=== PATIENT | female | born 1985 | race Caucasian/White ===

== ENCOUNTER 2020-10-01 15:17 | Outpatient (RCR) | payer BC, SELFPAY | END 2020-12-30 23:59 | disposition home or self-care (01) | LOC: ANHLAB 15:17 | PROVIDERS: PCP Family Medicine; Visit Provider Obstetrics & Gynecology | DX: Z29.13 Encounter for prophylactic Rho(D) immune globulin (principal); O26.859 Spotting complicating pregnancy, unspecified trimester; Z3A.00 Weeks of gestation of pregnancy not specified | CPT/HCPCS: 36415; 85461; 90384; J2790 ==

== ENCOUNTER 2020-10-01 18:42 | Outpatient (CLI) | payer BC, SELFPAY ==
[2020-10-01] MEDS: RHO(D) IMMUNE GLOBULIN 300 MCG/2 ML SYRINGE IM (19:13)
== END 2020-10-01 18:43 | disposition home or self-care (01) ==
PROVIDERS: PCP Family Medicine; Visit Provider Obstetrics & Gynecology
DX: O36.0990 Maternal care for other rhesus isoimmunization, unspecified trimester, not applicable or unspecified (principal); Z3A.00 Weeks of gestation of pregnancy not specified
CPT/HCPCS: 96372

== ENCOUNTER 2021-02-18 12:04 | Outpatient (RCR) | payer BC, SELFPAY ==
[2021-02-18 13:24] LABS: Hematocrit 37.1 % (37.0-47.0); Hemoglobin 11.9 g/dL (12.0-15.0)
[2021-02-18 13:36] LABS: Glucose 1 Hour PP 50gm Dose 196 mg/dL
[2021-02-18 14:16] LABS: HIV 1/2 Ab P24 Ag Result Negative (Negative)
[2021-02-18] MEDS: RHO(D) IMMUNE GLOBULIN 300 MCG/2 ML SYRINGE IM (18:04)
[2021-02-21 12:00] LABS: Rapid Plasma Reagin Non-Reactive (NonReactive)
== END 2021-05-19 23:59 | disposition home or self-care (01) ==
LOC: ANHLAB 12:04
PROVIDERS: PCP Family Medicine; Visit Provider Obstetrics & Gynecology
DX: Z11.4 Encounter for screening for human immunodeficiency virus [HIV] (principal); Z29.13 Encounter for prophylactic Rho(D) immune globulin; O36.0190 Maternal care for anti-D [Rh] antibodies, unspecified trimester, not applicable or unspecified; Z3A.00 Weeks of gestation of pregnancy not specified
CPT/HCPCS: 36415; 82947; 85014; 85018; 85461; 86592; 86703; 90384; 96372; G0432; J2790

== ENCOUNTER 2021-04-18 20:10 | Observation (INO) | payer BC, SELFPAY ==
[2021-04-18 20:42] VITALS: BP 131/84; PULSE 90
[2021-04-18 20:46] VITALS: BP 131/88; PULSE 98
[2021-04-18 20:51] LABS: Glucose Point of Care 108 mg/dl (65-105)
[2021-04-18 21:01] VITALS: BP 131/84; PULSE 85
[2021-04-18 21:17] VITALS: BP 127/61; PULSE 88
[2021-04-18 21:32] VITALS: BP 104/66; PULSE 83
[2021-04-18 21:42] VITALS: BMI 55.3
--- NOTE | 2021-04-18 21:45 | OBADM ---
This patient, Lindsay Narvaez, admitted to the OB room Labor/Delivery/Recovery 106 for observation. Patient/family oriented to hospital policies and general routines including ID bracelet, bed and alarms, visiting hours, pain management, procedures, bathroom and other care routines, personal items, smoking policy, room service/diet, and visiting hours. Patient/Family are encouraged to report perceived risks to care and to ask questions if they do not understand what they are told or what they should do.
[2021-04-18 22:02] VITALS: BP 122/67; PULSE 90
[2021-04-18] MEDS: ACETAMINOPHEN 500 MG TABLET 1000 MG PO (22:07)
--- NOTE | 2021-04-18 22:14 | PC.NURSE ---
2155- called Magaly Meraz CNMW- informed of pt admission for lower back pain, pelvic pressure, and nausea that started around 10am today. pt stated that she is GDM-diet controlled but doesnt always check her sugar. BS-108 here. pt also CHTN-no meds. FHT reviewed. order recevied to give tylenol 1000mg po for LBP and send UA. will continue to monitor pt and call with lab results.
[2021-04-18 22:27] LABS: Add Urine Microscopic? YES; Appearance Urine Clear (Clear); Bacteria Urine Trace /hpf; Bilirubin Urine Negative (Negative); Blood Urine Negative (Negative); Color Urine Straw (Yellow); Glucose Urine UA Negative (Negative); Ketones Urine Trace mg/dL (Negative); Leukocyte Esterase Ur Negative LEU/UL (Negative); Nitrate Urine Negative (Negative); Protein Urine Negative (Negative); RBC Urine 0-2 /hpf (0-2); Squamous Epithelial Cell Urine Rare /hpf (Few); Urobilinogen Urine Negative mg/dL (<2.0); WBC Urine 0-3 /hpf
[2021-04-18 22:43] LABS: Specific Grav Ur 1.003 (1.001-1.035)
--- NOTE | 2021-04-18 22:51 | PC.NURSE ---
2248- called Holli Meraz [facility]- labs reviewed. pt states that she is feeling 100% better but just tired. order received to D/C home with instructions on when to return. pt has OV with Dr. Duran on 04/22/21.
--- NOTE | 2021-04-26 07:18 | PM.OBTRLD ---
OB - Triage/Final Diagnosis Visit Information Comments/Additional reasons for admission: I have assessed the risk for this patient, Lindsay Narvaez, and determined that she would benefit from observation care. Evaluation Laboratory results: Laboratory Tests 04/18/21 04/18/21 20:47 22:11 POC Capillary Glucose 108 H Urine Color Straw Urine Appearance Clear Urine pH 6.0 Ur Specific [place] 1.003 Urine Protein Negative Urine Glucose (UA) Negative Urine Ketones Trace Ur Blood (Man) Negative Urine Nitrate Negative Urine Bilirubin Negative Urine Urobilinogen Negative Leukocyte Esterase Rfl Negative Urine RBC 0-2 Urine WBC 0-3 Ur Squamous Epith Cells Rare Urine Bacteria Trace Final Diagnosis (1) Back pain affecting : Code(s): O99.891 - Other specified diseases and conditions complicating ; M54.9 - Dorsalgia, unspecified Status: Acute
== END 2021-04-18 23:00 | disposition home or self-care (01) ==
PROVIDERS: Advanced Practice Midwife; Admitting Provider Obstetrics & Gynecology; PCP Family Medicine; Visit Provider Obstetrics & Gynecology
DX: O99.891 Other specified diseases and conditions complicating pregnancy (principal); M54.9 Dorsalgia, unspecified; Z3A.36 36 weeks gestation of pregnancy
CPT/HCPCS: 81001; 82948; A9270; G0378; G0379

== ENCOUNTER 2021-04-29 14:29 | Outpatient (CLI) | payer BC, SELFPAY ==
[2021-04-29 15:05] LABS: Basophils Percent Auto 0.3 % (0.2-1.2); Eosinophils Absolute Auto 0.1 K/mm3 (0-0.3); Hematocrit 39.2 % (37.0-47.0); Hemoglobin 12.5 g/dL (12.0-15.0); Immature Granulocyte Absolute 0.04 K/mm3 (0.00-0.031); Immature Granulocyte Percent A 0.4 % (0-0.5); Lymphocytes Absolute Auto 2.12 K/mm3 (0.9-3.2); Lymphocytes Percent Auto 20.5 % (18.3-44.2); Mean Corpuscular HGB Conc 31.9 g/dl (32-36); Mean Corpuscular Hemoglobin 28.7 pg (26-34); Mean Corpuscular Volume 90.1 fl (80-100); Mean Platelet Volume 12.5 fl (7.4-10.4); Monocytes Absolute Auto 0.9 K/mm3 (0.1-0.6); Monocytes Percent Auto 8.6 % (2.6-8.5); Neutrophils Absolute Auto 7.2 K/mm3 (1.3-6.7); Neutrophils Percent Auto 69.2 % (45.5-73.1); Platelet Count Result 215 k/mm3 (150-375); Red Blood Count 4.35 M/mm3 (4.2-5.4); Red Cell Distribution Width 13.5 % (11.5-14.5); White Blood Count 10.4 K/mm3 (4.5-10.0)
[2021-04-29 15:14] LABS: Alanine Aminotransferase 17 U/L (4-35); Albumin Level 3.5 g/dL (3.5-5.1); Alkaline Phosphatase 155 U/L (38-126); Anion Gap 5 mmol/L (8-16); Aspartate Amino Transferase 26 U/L (14-36); Bilirubin,Total 0.3 mg/dL (0.2-1.3); Blood Urea Nitrogen 4 mg/dL (7-17); Calcium 8.5 mg/dL (8.4-10.2); Carbon Dioxide 25 mmol/L (22-30); Chloride 106 mmol/L (98-107); Estimated Glomerular Filt Rate > 60; Glucose 113 mg/dL (65-110); Potassium 4.1 mmol/L (3.4-5.0); Sodium 136 mmol/L (137-145)
[2021-04-29 15:25] VITALS: BP 127/79; PULSE 82
== END 2021-04-29 15:32 | disposition home or self-care (01) ==
LOC: ANHOBOP 14:38 → ANHOBPP 14:38
PROVIDERS: Advanced Practice Midwife; PCP Family Medicine; Visit Provider Obstetrics & Gynecology
DX: O13.9 Gestational [pregnancy-induced] hypertension without significant proteinuria, unspecified trimester (principal); Z3A.00 Weeks of gestation of pregnancy not specified
CPT/HCPCS: 36415; 80053; 85025; 99199

== ENCOUNTER 2021-05-02 05:45 | Inpatient (IN) | payer BC, SELFPAY ==
[2021-05-02] VITALS (120 sets, daily range): BP systolic 58–150; BP diastolic 44–114; PULSE 25–108; TEMP 36–36.8; O2SAT 83–100; BMI 57.2
--- OUTSIDE RECORDS SUMMARY | 2021-05-02 05:50 | XMS_ITS | Encounter Summary ---
:1985 Author Care Team Providers Name Role Phone Eulalia Rahman Primary Care Provider [phone] Reason for Visit None recorded. Assessment and Plan 1. Maternal obesity complicating , childbirth and the puerperium, antepartum ? US, obstetric, biophysical profile + non-stress test Discussion Note: None recorded.Patient educational handouts: No information available. Plan of Care Reminders Provider Appointments Ob Routine 05/06/2021 Magaly Galindo 2:00PM GEORGE Meraz ? Ob Routine 05/13/2021 Holli Galindo 2:00PM GEORGE Meraz ? 1Hr Glucose on or around Rosalia Michelle 06/13/2021 MD Renee Lab None ? ? recorded. Referral None ? ? recorded. Procedures None ? ? recorded. Surgeries None ? ? recorded. Imaging US, 04/15/2021 [place] [facility], Biophysical Profile + Non-stress Test Medications Name Start Date ? ? Adult Aspirin 81 mg tablet ? aspirin ? freestyle mis lancets ? FreeStyle [place] Lite kit ? USE METER TO TEST SUGARS 4 TIMES A DAY FreeStyle Lancets 28 gauge ? USE TO TEST 4 TIMES A DAY. FASTING IN THE MORNING, AN D 1 HAILEY
--- OUTSIDE RECORDS SUMMARY | 2021-05-02 05:50 | XMS_ITS | Encounter Summary ---
:1985 Author Care Team Providers Name Role Phone Eulaila Rahman Primary Care Provider [phone] Reason for Visit None recorded. Assessment and [...] Surgeries None ? ? recorded. Imaging US, 04/29/2021 [place] [facility], Biophysical Profile + Non-stress Test Medications Name Start Date ? ? Adult Aspirin 81 mg tablet ? aspirin ? freestyle mis lancets ? FreeStyle [place] Lite kit ? USE METER TO TEST SUGARS 4 TIMES A DAY FreeStyle Lancets 28 gauge ? USE TO TEST 4 TIMES A DAY. FASTING IN THE MORNING, AN D 1 HAILEY
--- OUTSIDE RECORDS SUMMARY | 2021-05-02 05:50 | XMS_ITS ---
:1985 Author Care Team Providers Name Role Phone SHANE GALLOWAY Primary Care Provider [phone] Allergies Code Code System Name Reaction Severity Status Onset NKDA ? Medications Name Status Start Date Stop Date ? ? Adult Aspirin 81 mg tablet Active ? Not a vailable aspirin Active ? Not available bupropion HCl 75 mg tablet Completed ? 11/28 take 1 tablet by oral route 3 times every day ciprofloxacin 500 mg tablet Completed ? 02/2020 TAKE 1 TABLET BY MOUTH TWICE A DAY FOR 5 DAYS clomiphene citrate 50 mg tablet Completed 11/21/2018 10/06/2020 take 1 tablet by oral route every day days 5-9 of cycle Diflucan 150 mg tablet Completed 09/20/2016 8 take 1 tablet by oral route once Diflucan 200 mg tablet Completed 08/18/2016 7 take 1 tablet by oral route every day Flagyl 500 mg tablet Completed 07/29/2018 11/28/2018 take 1 tablet by oral route every 12 hours fluoxetine 40 mg capsule Completed ? 014 take 1 capsule by oral route every day in the morning freestyle mis lancets Active ? Not kye ilable FreeStyle [place] Lite kit Active ? Not a vailable USE METER TO TEST SUGARS 4 TIMES A DAY FreeStyle Lancets 28 gauge Active ? Not a vailable USE TO TEST 4 TIMES A DAY. FASTING IN THE MORNING, AND 1 HOUR A FTER MEALS FreeStyle Lite Strips Active ? Not availa ble USE TO TEST 4 TIMES A DAY, FASTING IN THE MORNING AND [address] MEALS hydrochlorothiazide 12.5 mg Completed ? 02/2020 capsule
--- OUTSIDE RECORDS SUMMARY | 2021-05-02 05:50 | XMS_ITS | Encounter Summary ---
:1985 Author Care Team Providers Name Role Phone Eulalia Rahman Primary Care Provider [phone] Reason for Visit OB visit OB [id number] EDC 05/15/2021 LMP 08/08/2020 Assessment and Plan Assessment Note Patient is _34__weeks . Dis cussed plan. 1. Routine care Discussion Note: None recorded.Patient educational handouts: No information available. Plan of Care Reminders Provider Appointments Ob Routine 05/06/2021 Magaly Meraz, 2:00PM CNM ? Ob Routine 05/13/2021 Holli Meraz, 2:00PM CNM ? 1Hr on or around Rosalia There se Glucose 06/13/2021 MD Renee Lab None ? ? recorded. Referral None ? ? recorded. Procedures None ? ? recorded. Surgeries None ? ? recorded. Imaging None ? ? recorded. Medications Name Start Date ? ? Adult Aspirin 81 mg tablet ? aspirin ? freestyle mis lancets ? FreeStyle [place] Lite kit ? USE METER TO TEST SUGARS 4 TIMES A DAY FreeStyle Lancets 28 gauge ? USE TO TEST 4 TIMES A DAY. FASTING IN THE MORNING, AN D 1 HOUR AFTER MEALS FreeStyle Lite Strips ? USE TO TEST 4 TIMES A DAY, FASTING IN THE MORNING AND 1 HOUR AFTER MEALS ?
--- OUTSIDE RECORDS SUMMARY | 2021-05-02 05:50 | XMS_ITS | Encounter Summary ---
:1985 Author Care Team Providers Name Role Phone Eulalia Rahman Primary Care Provider [phone] Reason for Visit OB visit Assessment and Plan 1. Chronic hypertension in obste tric context 2. Gestational diabetes mellitus , class A>1< Discussion Note: None recorded.Patient educational handouts: No [...] aspirin ? freestyle mis lancets ? FreeStyle [place] Lite kit ? USE METER TO TEST SUGARS 4 TIMES A DAY FreeStyle Lancets 28 gauge ? USE TO TEST 4 TIMES A DAY. FASTING IN THE MORNING, AN D 1 HOUR AFTER MEALS FreeStyle Lite Strips ? USE TO TEST 4 TIMES A DAY, FASTING IN THE MORNING AND 1 HOUR AFTER MEALS ? sertraline 50 mg tablet ? TAKE 1 TABLET BY MOUTH EVERY DAY FOR 30 DAYS
--- OUTSIDE RECORDS SUMMARY | 2021-05-02 05:50 | XMS_ITS | Encounter Summary ---
:1985 Author Care Team Providers Name Role Phone Eulalia Rahman Primary Care Provider [phone] Reason for Visit OB visit OB [id number] EDC 05/15/2021 LMP 08/08/2020 Assessment and Plan Assessment Note Patient is _37__weeks . Dis cussed plan. 1. Routine care [...] aspirin ? freestyle mis lancets ? FreeStyle [place] Lite kit ? USE METER TO TEST SUGARS 4 TIMES A DAY FreeStyle Lancets 28 gauge ? USE TO TEST 4 TIMES A DAY. FASTING IN THE MORNING, AN D 1 HOUR AFTER MEALS FreeStyle Lite Strips ? USE TO TEST 4 TIMES A DAY, FASTING IN THE MORNING AND 1 HOUR AFTER MEALS ?
--- OUTSIDE RECORDS SUMMARY | 2021-05-02 05:50 | XMS_ITS | Encounter Summary ---
:1985 Author Care Team Providers Name Role Phone Eulalia Rahman Primary Care Provider [phone] Reason for Visit None recorded. Assessment and Plan 1. Gestational diabetes mellitus , class A>1< ? non-stress test Discussion Note: None recorded.Patient educational [...] recorded. Surgeries None ? ? recorded. Imaging Non-stress 04/22/2021 Radha harvey Test Medications Name Start Date ? ? Adult Aspirin 81 mg tablet ? aspirin ? freestyle mis lancets ? FreeStyle [place] Lite kit ? USE METER TO TEST [...]
--- OUTSIDE RECORDS SUMMARY | 2021-05-02 05:50 | XMS_ITS | Encounter Summary ---
:1985 Author Care Team Providers Name Role Phone Eulalia Rahman Primary Care Provider [phone] Reason for Visit None recorded. Assessment and [...] Surgeries None ? ? recorded. Imaging Non-stress 04/15/2021 Radha harvey Test Medications Name Start Date ? ? Adult Aspirin 81 mg tablet ? aspirin ? freestyle mis lancets ? FreeStyle [place] Lite kit ? USE METER TO TEST [...]
--- OUTSIDE RECORDS SUMMARY | 2021-05-02 05:50 | XMS_ITS | Encounter Summary ---
:1985 Author Care Team Providers Name Role Phone Eulalia Rahman Primary Care Provider [phone] Reason for Visit OB visit Assessment and Plan 1. Chronic hypertension in obste tric context 2. Body mass index 40+ - severel y obese 3. Advanced maternal age Discussion Note: None recorded.Patient educational handouts: No [...] aspirin ? freestyle mis lancets ? FreeStyle [place] Lite kit ? USE METER TO TEST [...]
--- OUTSIDE RECORDS SUMMARY | 2021-05-02 05:50 | XMS_ITS | Encounter Summary ---
:1985 Author Care Team Providers Name Role Phone Eulalia Rahman Primary Care Provider [phone] Reason for Visit None recorded. Assessment and Plan 1. Gestational diabetes mellitus , class A>1< ? US, obstetric, biophysical profile + non-stress test Discussion Note: None recorded.Patient educational handouts: No information available. Plan of Care Reminders Provider Appointments Ob Routine 05/06/2021 Magaly h E 2:00PM [place], CNM ? Ob Routine 05/13/2021 Holli E 2:00PM Kt, CNM ? 1Hr Glucose on or around Rosalia Michelle 06/13/2021 MD Renee Lab None ? ? recorded. Referral None ? ? recorded. Procedures None ? ? recorded. Surgeries None ? ? recorded. Imaging US, 04/22/2021 [place] [facility], Biophysical Profile + Non-stress Test Medications Name Start Date ? ? Adult Aspirin 81 mg tablet ? aspirin ? freestyle mis lancets ? FreeStyle [place] Lite kit ? USE METER TO TEST SUGARS 4 TIMES A DAY FreeStyle Lancets 28 gauge ? USE TO TEST 4 TIMES A DAY. FASTING IN THE MORNING, AN D 1 HOUR AFTER MEALS FreeStyle Lite Strips ?
--- OUTSIDE RECORDS SUMMARY | 2021-05-02 05:50 | XMS_ITS | Encounter Summary ---
:1985 Author Care Team Providers Name Role Phone Eulalia Rahman Primary Care Provider [phone] Reason for Visit None recorded. Assessment and [...] Surgeries None ? ? recorded. Imaging Non-stress 04/29/2021 Radha harvey Test Medications Name Start Date ? ? Adult Aspirin 81 mg tablet ? aspirin ? freestyle mis lancets ? FreeStyle [place] Lite kit ? USE METER TO TEST [...]
--- OUTSIDE RECORDS SUMMARY | 2021-05-02 05:51 | XMS_ITS | Encounter Summary ---
:1985 Author Care Team Providers Name Role Phone Eulalia Rahman Primary Care Provider [phone] Reason for Visit OB visit Assessment and Plan 1. Routine care Discussion Note: None recorded.Patient [...] aspirin ? freestyle mis lancets ? FreeStyle [place] Lite kit ? USE METER TO TEST [...] BY MOUTH EVERY DAY FOR 30 DAYS Notes: taking 1/2 tab every day and a full tab if needed Medications Admin
--- OUTSIDE RECORDS SUMMARY | 2021-05-02 05:51 | XMS_ITS | Encounter Summary ---
:1985 Author Care Team Providers Name Role Phone Eulalia Rahman Primary Care Provider [phone] Reason for Visit None recorded. Assessment and [...] Surgeries None ? ? recorded. Imaging US, 04/01/2021 [place] [facility], Biophysical Profile + Non-stress Test Medications Name Start Date ? ? Adult Aspirin 81 mg tablet ? aspirin ? freestyle mis lancets ? FreeStyle [place] Lite kit ? USE METER TO TEST SUGARS 4 TIMES A DAY FreeStyle Lancets 28 gauge ? USE TO TEST 4 TIMES A DAY. FASTING IN THE MORNING, AN D 1 HO
--- OUTSIDE RECORDS SUMMARY | 2021-05-02 05:51 | XMS_ITS | Encounter Summary ---
:1985 Author Care Team Providers Name Role Phone Eulalia Rahman Primary Care Provider [phone] Reason for Visit OB visit 30w5d Assessment and Plan 1. Routine care 2. Gestational diabetes mellitus complicating Discussion Note: None recorded.Patient educational handouts: No [...] aspirin ? freestyle mis lancets ? FreeStyle [place] Lite kit ? USE METER TO TEST [...]
--- OUTSIDE RECORDS SUMMARY | 2021-05-02 05:51 | XMS_ITS | Encounter Summary ---
:1985 Author Care Team Providers Name Role Phone Eulalia Rahman Primary Care Provider [phone] Reason for Visit None recorded. Assessment and [...] Surgeries None ? ? recorded. Imaging Non-stress 04/01/2021 Radha harvey Test Medications Name Start Date ? ? Adult Aspirin 81 mg tablet ? aspirin ? freestyle mis lancets ? FreeStyle [place] Lite kit ? USE METER TO TEST [...]
--- OUTSIDE RECORDS SUMMARY | 2021-05-02 05:51 | XMS_ITS | Encounter Summary ---
:1985 Author Care Team Providers Name Role Phone Eulalia Rahman Primary Care Provider [phone] Reason for Visit None recorded. Assessment and Plan 1. Maternal obesity complicating , childbirth and the puerperium, antepartum ? US, obstetric, follow-up ? US, obstetric, biophysical profile + non-stress test Discussion Note: None recorded.Patient educational handouts: No information available. Plan of Care Reminders Provider Appointments Ob Routine 05/06/2021 Magaly h E 2:00PM GEORGE Meraz ? Ob Routine 05/13/2021 Holli E 2:00PM GEORGE Meraz ? 1Hr Glucose on or around Rosalia Michelle 06/13/2021 MD Renee Lab None ? ? recorded. Referral None ? ? recorded. Procedures None ? ? recorded. Surgeries None ? ? recorded. Imaging US, 04/08/2021 [place] [facility], Follow-up ? US, 04/08/2021 [place] [facility], Biophysical Profile + Non-stress Test Medications Name Start Date ? ? Adult Aspirin 81 mg tablet ? aspirin ? free
--- OUTSIDE RECORDS SUMMARY | 2021-05-02 05:51 | XMS_ITS | Encounter Summary ---
:1985 Author Care Team Providers Name Role Phone Eulalia Rahman Primary Care Provider [phone] Reason for Visit OB visit Assessment and Plan 1. Advanced maternal age 2. Chronic hypertension in obste tric context 3. Gestational diabetes mellitus , class A>1< Discussion [...] aspirin ? freestyle mis lancets ? FreeStyle [place] Lite kit ? USE METER TO TEST [...]
--- OUTSIDE RECORDS SUMMARY | 2021-05-02 05:51 | XMS_ITS | Encounter Summary ---
:1985 Author Care Team Providers Name Role Phone Eulalia Rahman Primary Care Provider [phone] Reason for Visit None recorded. Assessment and [...] Surgeries None ? ? recorded. Imaging Non-stress 04/08/2021 Radha harvey Test Medications Name Start Date ? ? Adult Aspirin 81 mg tablet ? aspirin ? freestyle mis lancets ? FreeStyle [place] Lite kit ? USE METER TO TEST [...]
--- OUTSIDE RECORDS SUMMARY | 2021-05-02 05:51 | XMS_ITS | Encounter Summary ---
:1985 Author Care Team Providers Name Role Phone Eulalia Rahman Primary Care Provider [phone] Reason for Visit None recorded. Assessment and Plan None recorded.Discussion Note: None recorded.Patient educational handouts: No information [...] aspirin ? freestyle mis lancets ? FreeStyle [place] Lite kit ? USE METER TO TEST [...] and a full tab if needed Medications Administered None recorded. Vitals None recorded. Results
--- OUTSIDE RECORDS SUMMARY | 2021-05-02 05:51 | XMS_ITS | Encounter Summary ---
:1985 Author Care Team Providers Name Role Phone Eulalia Rahman Primary Care Provider [phone] Reason for Visit None recorded. Assessment and [...] Surgeries None ? ? recorded. Imaging US, 03/25/2021 [place] [facility], Biophysical Profile + Non-stress Test Medications Name Start Date ? ? Adult Aspirin 81 mg tablet ? aspirin ? freestyle mis lancets ? FreeStyle [place] Lite kit ? USE METER TO TEST SUGARS 4 TIMES A DAY FreeStyle Lancets 28 gauge ? USE TO TEST 4 TIMES A DAY. FASTING IN THE MORNING, AN D 1 HO
--- OUTSIDE RECORDS SUMMARY | 2021-05-02 05:51 | XMS_ITS | Encounter Summary ---
:1985 Author Care Team Providers Name Role Phone Eulalia Rahman Primary Care Provider [phone] Reason for Visit OB visit 25w4d Assessment and Plan 1. Routine care Discussion [...] aspirin ? freestyle mis lancets ? FreeStyle [place] Lite kit ? USE METER TO TEST [...]
--- OUTSIDE RECORDS SUMMARY | 2021-05-02 05:51 | XMS_ITS | Encounter Summary ---
:1985 Author Care Team Providers Name Role Phone Eulalia Rahman Primary Care Provider [phone] Reason for Visit None recorded. Assessment and Plan 1. Gestational diabetes mellitus , class A>1< Pt here for diet teaching. Bethany t over ideal ranges for FBS and pp BS. Went over carb counting and carb ranges for e ach meal/snack. Gave ideas for foods to eat for meals/snacks. Discussed drink option s and to avoid soda and juice. Told pt she can go online to ADA for meal options or to look up low carb meal recipes online for ideas as well. Pt has been checking suga rs for about a month now. Pt has some elevated pp levels. Most fasting levels are normal. Told pt to continue checking BS QID and adjusting diet to follow low car b diet to try to keep BS within normal range. Pt aware if sugars aren't controlled by diet we would discuss starting insulin. Went over NST schedule with pt and growth u/s once she gets further along. Pt checking BS for her and baby's health. Pts questions were answered and pt verbalized understanding. ALLISON nieto ? US, obstetric, follow-up Discussion Note: None recorded.Patient educational handouts: No information available. Plan of Care Reminders Provider Appointments Ob Routine 05/06/2021 Magaly Meraz, 2:00PM CNM ? Ob Routine 05/13/2021 Holli Meraz, 2:00PM CNM ? 1Hr on or around Rosalia There se Glucose 06/13/2021 MD Renee Lab None ? ? recorded. Referral None ? ? recorded. Procedures
--- OUTSIDE RECORDS SUMMARY | 2021-05-02 05:51 | XMS_ITS | Encounter Summary ---
:1985 Author Care Team Providers Name Role Phone Eulalia Rahman Primary Care Provider [phone] Reason for Visit OB visit Assessment and Plan 1. Advanced maternal age 2. Body mass index 40+ - severel y obese 3. Chronic hypertension in obste tric context 4. Gestational diabetes mellitus , class A>1< Pt [...] questions were answered and pt verbalized understanding. bnALLISON grace Discussion Note: None recorded.Patient educational handouts: No information available. Plan of Care Reminders Provider Appointments Ob Routine 05/06/2021 Magaly Meraz, 2:00PM CNM ? Ob Routine 05/13/2021 Holli Meraz, 2:00PM CNM ? 1Hr on or around Rosalia There se Glucose 06/13/2021 MD Renee Lab None ? ? recorded.
--- OUTSIDE RECORDS SUMMARY | 2021-05-02 05:51 | XMS_ITS | Encounter Summary ---
:1985 Author Care Team Providers Name Role Phone Eulalia Rahman Primary Care Provider [phone] Reason for Visit None recorded. Assessment and Plan 1. Chronic hypertension in obste tric context ? non-stress test Discussion Note: None recorded.Patient [...] Surgeries None ? ? recorded. Imaging Non-stress 03/25/2021 Radha harvey Test Medications Name Start Date ? ? Adult Aspirin 81 mg tablet ? aspirin ? freestyle mis lancets ? FreeStyle [place] Lite kit ? USE METER TO TEST [...]
--- OUTSIDE RECORDS SUMMARY | 2021-05-02 05:51 | XMS_ITS | Encounter Summary ---
:1985 Author Care Team Providers Name Role Phone Eulalia Rahman Primary Care Provider [phone] Reason for Visit None recorded. Assessment and [...]
--- NOTE | 2021-05-02 07:24 | LDADM ---
This patient, Lindsay Narvaez, was admitted to Labor/Delivery/Recovery 103 on 05/02/21 at 05:45. Plans for labor, pain management and were discussed with patient. Patient/family oriented to hospital policies and general routines including ID bracelet, bed and alarms, visiting hours, pain management, procedures, bathroom and other care routines, personal items, smoking policy, room service/diet and guest tray routines, infant security routines, and visiting hours. Patient/Family are encouraged to report perceived risks to care and to ask questions if they do not understand what they are told or what they should do. See OBIX for further documentation.
[2021-05-02 07:37] LABS: Basophils Percent Auto 0.3 % (0.2-1.2); Eosinophils Percent Auto 0.4 % (0-4.4); Hematocrit 39.3 % (37.0-47.0); Hemoglobin 12.8 g/dL (12.0-15.0); Immature Granulocyte Absolute 0.04 K/mm3 (0.00-0.031); Immature Granulocyte Percent A 0.4 % (0-0.5); Lymphocytes Absolute Auto 1.53 K/mm3 (0.9-3.2); Lymphocytes Percent Auto 14.7 % (18.3-44.2); Mean Corpuscular HGB Conc 32.6 g/dl (32-36); Mean Corpuscular Hemoglobin 28.9 pg (26-34); Mean Corpuscular Volume 88.7 fl (80-100); Mean Platelet Volume 12.3 fl (7.4-10.4); Monocytes Absolute Auto 0.6 K/mm3 (0.1-0.6); Monocytes Percent Auto 5.5 % (2.6-8.5); Neutrophils Absolute Auto 8.2 K/mm3 (1.3-6.7); Neutrophils Percent Auto 78.7 % (45.5-73.1); Platelet Count Result 205 k/mm3 (150-375); Red Blood Count 4.43 M/mm3 (4.2-5.4); Red Cell Distribution Width 13.6 % (11.5-14.5); White Blood Count 10.4 K/mm3 (4.5-10.0)
[2021-05-02] MEDS: OXYTOCIN 30 UNITS/NS 500 ML 30 UNITS/500 ML BAG IV CONT (07:45)
[2021-05-02] MEDS: LACTATED RINGERS 1,000 ML 125 ML IV CONT ×3 (07:47→18:24)
[2021-05-02 07:51] LABS: Alanine Aminotransferase 19 U/L (4-35); Albumin Level 3.3 g/dL (3.5-5.1); Alkaline Phosphatase 164 U/L (38-126); Anion Gap 5 mmol/L (8-16); Aspartate Amino Transferase 26 U/L (14-36); Bilirubin,Total 0.4 mg/dL (0.2-1.3); Blood Urea Nitrogen 4 mg/dL (7-17); Calcium 8.6 mg/dL (8.4-10.2); Carbon Dioxide 22 mmol/L (22-30); Chloride 106 mmol/L (98-107); Estimated CRCL calculation 222 ml/min; Estimated Glomerular Filt Rate > 60; Glucose 155 mg/dL (65-110); Potassium 3.6 mmol/L (3.4-5.0); Sodium 133 mmol/L (137-145); Uric Acid 2.9 mg/dL (2.5-7.5)
--- NOTE | 2021-05-02 09:28 | WPDOBADMIT ---
Obstetrics - Admit Note Admission Note: record reviewed. No pertinent additions to the history and/or any subsequent changes in the physical findings that are not consistent with the expected course of the were found. MIL GDM diet controlled and CHTN. Additions to the history and/or subsequent changes in the physical findings follow. None.
[2021-05-02 11:43] LABS: Glucose Point of Care 83 mg/dl (65-105)
[2021-05-02 13:00] LABS: Rapid Plasma Reagin Non-Reactive (NonReactive)
[2021-05-02 15:21] LABS: Glucose Point of Care 82 mg/dl (65-105)
[2021-05-02] MEDS: LACTATED RINGERS 1,000 ML 999 ML IV CONT (16:18)
[2021-05-02] MEDS: ONDANSETRON INJ 4 MG/2 ML VIAL IV PUSH (17:43)
[2021-05-02 18:52] LABS: Glucose Point of Care 70 mg/dl (65-105)
--- NOTE | 2021-05-02 19:55 | WPDANESEPPF ---
Anes - Initial Pre Proc Eval Procedure: labor epidural Date/Time: 05/02/21 19:55 Surgeon: Rosalia Duran MD Pre Op Diagnosis: labor pain Pre Op Diagnosis: IOL Patient Data Age: 36 Gender: F Height: 1.6 m Weight: 146.5 kg Last Vital Signs Temp 36.3 C L 05/02/21 18:50 Pulse 70 05/02/21 19:45 BP 119/71 05/02/21 19:45 Pulse Ox 95 05/02/21 19:53 Allergies Allergy/AdvReac Type Severity Reaction Status Date / Time No Known Allergies Allergy Unknown Unverified 01/22/16 13:37 Home Medications Medication Instructions Recorded Confirmed Type sertraline 50 mg PO DAILY 04/18/21 05/02/21 History PNV cmb#95-ferrous fumarate-FA 1 tablet PO DAILY 04/23/21 05/02/21 History [] aspirin 81 mg PO DAILY 04/23/21 05/02/21 History docusate sodium [Colace] 50 mg PO DAILY 04/23/21 05/02/21 History Laboratory Tests 05/02/21 05/02/21 05/02/21 07:27 07:27 07:28 WBC 10.4 K/mm3 H K/mm3 (4.5-10.0) RBC 4.43 M/mm3 M/mm3 (4.2-5.4) Hgb 12.8 g/dL g/dL (12.0-15.0) Hct 39.3 % % (37.0-47.0) MCV 88.7 fl fl (80-100) MCH 28.9 pg pg (26-34) MCHC 32.6 g/dl g/dl (32-36) RDW 13.6 % % (11.5-14.5) Plt Count 205 k/mm3 k/mm3 (150-375) MPV 12.3 fl H fl (7.4-10.4) Immature Gran % (Auto) 0.4 % % (0-0.5) Neut % (Auto) 78.7 % H % (45.5-73.1) Lymph % (Auto) 14.7 % L % (18.3-44.2) [place] % (Auto) 5.5 % % (2.6-8.5) Eos % (Auto) 0.4 % % (0-4.4) Baso % (Auto) 0.3 % % (0.2-1.2) Lymph # (Auto) 1.53 K/mm3 K/mm3 (0.9-3.2) [place] # (Auto) 0.6 K/mm3 K/mm3 (0.1-0.6) Eos # (Auto) 0.0 K/mm3 K/mm3 (0-0.3) Baso # (Auto) 0.0 K/mm3 K/mm3 (0.0-0.1) Abs Immat Gran (auto) 0.04 K/mm3 H K/mm3 (0.00-0.031) Absolute Neuts (auto) 8.2 K/mm3 H K/mm3 (1.3-6.7) Absolute Nucleated RBC 0.0 K/mm3 K/mm3 (0.0-0.012) Nucleated RBC % 0.0 % % (0.0-0.2) Sodium 133 mmol/L L mmol/L (137-145) Potassium 3.6 mmol/L mmol/L (3.4-5.0) Chloride 106 mmol/L mmol/L (98-107) Carbon Dioxide 22 mmol/L mmol/L (22-30) Anion Gap 5 mmol/L L mmol/L (8-16) BUN 4 mg/dL L mg/dL (7-17) Creatinine 0.40 mg/dL L mg/dL (0.7-1.0) Estim Creat Clear Calc 222 ml/min ml/min Estimated GFR > 60 (59 - ) Glucose 155 mg/dL H mg/dL (65-110) POC Capillary Glucose Uric Acid 2.9 mg/dL mg/dL (2.5-7.5) Calcium 8.6 mg/dL mg/dL (8.4-10.2) Total Bilirubin 0.4 mg/dL mg/dL (0.2-1.3) AST 26 U/L U/L (14-36) ALT 19 U/L U/L (4-35) Alkaline Phosphatase 164 U/L H U/L (38-126) Total Protein 7.0 g/dL g/dL (6.3-8.2) Albumin 3.3 g/dL L g/dL (3.5-5.1) RPR Non-reactive (NonReactive) Blood Type Antibody Screen 05/02/21 05/02/21 05/02/21 07:28 11:30 15:18 WBC RBC Hgb Hct MCV MCH MCHC RDW Plt Count MPV Immature Gran % (Auto) Neut % (Auto) Lymph % (Auto) [place] % (Auto) Eos % (Auto) Baso % (Auto) Lymph # (Auto) [place] # (Auto) Eos # (Auto) Baso # (Auto) Abs Immat Gran (auto) Absolute Neuts (auto) Absolute Nucleated RBC Nucleated RBC % Sodium Potassium Chloride Carbon Dioxide Anion Gap BUN Creatinine Estim Creat Clear Calc Estimated GFR Glucose POC Capillary Glucose 83 mg/dl
[2021-05-02 22:14] LABS: Glucose Point of Care 104 mg/dl (65-105)
[2021-05-03] VITALS (147 sets, daily range): BP systolic 79–208; BP diastolic 32–130; PULSE 65–154; RESP 16; TEMP 36.6–37.4; O2SAT 75–100
[2021-05-03] MEDS: LACTATED RINGERS 1,000 ML 125 ML IV CONT (00:42)
[2021-05-03 02:31] LABS: Glucose Point of Care 96 mg/dl (65-105)
[2021-05-03] MEDS: AMPICILLIN 2 GM/NS 100 ML 2 GM/100 ML BAG IVPB (03:14)
[2021-05-03 06:54] LABS: Glucose Point of Care 78 mg/dl (65-105)
[2021-05-03] MEDS: AMPICILLIN 1 GM/NS 50 ML 1 GM/50 ML BAG IVPB ×2 (06:59→11:25)
[2021-05-03 10:42] LABS: Glucose Point of Care 125 mg/dl (65-105)
[2021-05-03] MEDS: OXYTOCIN 30 UNITS/NS 500 ML 30 UNITS/500 ML BAG IV CONT (11:26)
[2021-05-03 11:32] LABS: Glucose Point of Care 111 mg/dl (65-105)
--- NOTE | 2021-05-03 15:21 | PM.OBPRVD ---
OB - Delivery Note Procedure Delivery date: 05/03/21 Procedure: vaginal delivery Events: Gestational Diabetes Induction method: AROM and Per Pitocin Protocol Delivery monitor: External FHT, External Uterine and Internal Uterine Route of delivery: Specimen: Yes Quantitative Blood Loss (ml): 150 Anesthesia type: Epidural Disposition: Floor [place] Baby Date of : 05/03/21 Time of : 15:07 Weeks of gestation at delivery: 38 gender: Female Weight (pounds): 7 Weight (ounces): 11 presentation: vertex position: Left Occiput Anterior Placenta delivery description: Spontaneous Cord Vessel Description: 3 Vessels score one minute: 8 score five minutes: 8 Narrative: mother and baby in stabel condition
[2021-05-03] MEDS: OXYTOCIN 30 UNITS/NS 500 ML 30 UNITS/500 ML BAG 125 UNITS IV CONT (15:43)
[2021-05-03] MEDS: WITCH HAZEL 40 PADS 1 PAD TOPICAL (17:13)
[2021-05-03] MEDS: IBUPROFEN 600 MG TABLET PO (19:12)
--- NOTE | 2021-05-03 19:19 | OBPPTRN ---
1744 Patient transferred to post room #284 via W/C. Support person present. Oriented to unit, room, information board, rooming in, admission packet and security measures. Patient verbalizes understanding.
[2021-05-04] MEDS: ACETAMINOPHEN 325 MG TABLET 650 MG PO ×2 (00:35→07:09)
[2021-05-04 04:45] VITALS: BP 132/71; PULSE 107; RESP 16; TEMP 36.9
[2021-05-04] MEDS: IBUPROFEN 600 MG TABLET PO ×2 (04:45→11:35)
[2021-05-04 05:25] LABS: Hematocrit 36.4 % (37.0-47.0); Hemoglobin 11.8 g/dL (12.0-15.0)
[2021-05-04] MEDS: DOCUSATE SODIUM 100 MG CAPSULE PO (07:09)
[2021-05-04] MEDS: MULTIVIT/MIN/PREN/FOL AC/IRON TABLET 1 TAB PO (07:09)
--- NOTE | 2021-05-04 07:29 | PM.OBPNVD ---
OB - PN: Subj Subjective Date/time seen: 05/04/21 07:29 Patient comments: no complaints baby status: doing well OB - PN: Obj Data Labs CBC & Chem 7: 05/04/21 04:40 05/02/21 07:27 Labs: Laboratory Results - last 24 hr 05/03/21 05/03/21 05/04/21 10:38 11:30 04:40 Hgb 11.8 L Hct 36.4 L POC Capillary Glucose 125 H 111 H OB - PN A/P Plan day: 1 Plan: routine care Time Spent With Patient Time: Total time spent is greater than 50% in coordination of care (as documented) at patient's floor/unit and/or counseling patient: Review of Systems Review of Systems: All systems reviewed & are unremarkable except as noted in HPI and below Exam Const: General: cooperative, healthy appearing and comfortable
[2021-05-04 07:35] VITALS: BP 136/90; PULSE 85; RESP 18; TEMP 36.1; O2SAT 98
--- NOTE | 2021-05-04 08:47 | PC.NURSE ---
On 05/04/21, the student, [ ], provided care and completed [employer] documentation on this patient. I have reviewed the student's documentation and agree with the findings.
--- NOTE | 2021-05-04 08:48 | PC.NURSE ---
On 05/04/21, the student, Brett Yates, provided care and completed [facility] documentation on this patient. I have reviewed the student's documentation and agree with the findings.
[2021-05-04] MEDS: SERTRALINE HCL 50 MG TABLET PO (11:37)
[2021-05-04 12:00] VITALS: BP 110/71; PULSE 83; RESP 20; TEMP 36.4; O2SAT 97
[2021-05-04] MEDS: RHO(D) IMMUNE GLOBULIN 300 MCG/2 ML SYRINGE IM (13:10)
--- NOTE | 2021-05-04 16:21 | PC.NURSE ---
[id number] Introductions were made and consulted with patient to assess needs related to . Mother led conversation with her experience with feeding baby so far. Reviewed good handwashing when working with , breast, nipples and how to protect the nipples with a deep latch. Encouraged understanding the benefits of skin to skin, responding to feeding cues, frequencies of feeding 8-12 times in 24 hours (approximately 2-3 hours), duration of feedings, milk production, intake/output feeding sheet and signs of adequate intake. Discussed stimulating with skin to skin, hand expressing colostrum, touch and talking to infant to encourage eating at the breast. Reviewed positioning and alignment, supporting breast, off-centered (asymmetrical latch) and leading with the chin with big open wide gape. Resources reviewed using the mom and baby guide. Mother voiced understanding responding to feeding cues, may need to stimulating approximately 2-3 hours from the start of the last feeding, calling for assistance if the infant does not latch or there discomfort . Reported to primary RN. [id number] Consulted with patient to assess needs related to . Mother works well with her after encouragement. Reviewed good handwashing when working with infant, breast, nipples and how to protect the nipples with a deep latch. Encouraged understanding the benefits of skin to skin, responding to feeding cues, frequencies of feeding 8-12 times in 24 hours (approximately 2-3 hours), duration of feedings, milk production, intake/output feeding sheet and signs of adequate intake. Discussed stimulating infant with skin to skin, hand expressing colostrum, touch and talking to infant to encourage eating at the breast. Reviewed positioning and alignment, supporting breast, off-centered (asymmetrical latch) and leading with the chin with big open wide gape. attempted to the left breast in football position with no latch. Assisted mom with infant after feeding cues visualized to the right breast. Stimulated infant with supplementation after 10-15 attempt with no latch. After 10cc of paced fed formula infant latched optimally to the left breast in football position. Education given to mother of how to visualize suck/swallow ratios and drinking at the breast. was able to maintain latch without discomfort to mother. Nipple care, comfort and healing with warm, wet washcloth to rinse breast and leave to air-dry, colostrum may be left on nipples to dry but have clean hands when touching the nipple/breast. has had inadequate feedings in the past 24 hours and meets the outcomes for weight, output, jaundice and insist on going home after 24 hours. RN suggests staying to practice with feeding her infant. Mother states she feels confident to continue effectively /pumping/supplementing her at home. Reviewed production of human milk, transition of milk, signs of adequate intake and engorgement prevention/relief and when to call the care provider using the mom and baby guide. Reviewed medications mother is taking with information provided by [facility], community resources and outpatient services as listed in the mom and baby guide/[facility] website. Reinforced watching for feeding cues with responsive feeding and how to stimulate to initiate feeding three hours from the start of the last feeding. Mother voiced understanding of information shared. Reported to primary RN. Resources used to facilitate learning were used from the visual handout/ tool/mom and baby guide. Mother voiced understanding responding to feeding cues, may need to stimulating approximately 2-3 hours from the start of the last feeding, calling for assistance if the infant does not latch or there discomfort . Reported to primary RN. 1630 - Primary RN reported that mother is discharged to home on a feeding plan for baby.
--- NOTE | 2021-05-04 16:47 | WPDANLDPN2 ---
Anes-Prog Note L&D Date/Time: 05/04/21 16:47 Comfortable throughout: labor and delivery Neuraxial method: epidural Epidural/Spinal procedure site: clean & non-tender Neuro status: Neuro function grossly intact. Cardiovascular status: normal Respiratory status: normal Airway patency: baseline Mental status: baseline Post-Op hydration status: normal Vital Signs: Last Vital Signs Temp 36.4 C L 05/04/21 12:00 Pulse 83 05/04/21 12:00 Resp 20 05/04/21 12:00 BP 110/71 05/04/21 12:00 Pulse Ox 97 05/04/21 12:00 Pain score (VAS): 0 Post-procedural complaints: none Patient feedback: Patient satisfied with anesthetic care.
--- NOTE | 2021-05-04 18:37 | PC.NURSE ---
1600 Patient viewed the discharge video Mother & Baby Care, The First Two Weeks . Patient was given the opportunity and encouraged to ask questions. Patient verbalized understanding of information shared and has been given the mother/baby guide for home reference.
[2021-05-05 08:20] VITALS: BP 133/72; PULSE 75; RESP 20; TEMP 36.9; O2SAT 100
--- NOTE | 2021-05-06 07:29 | PM.OBDSVD ---
DS: Admitting Diagnosis Discharge Date 05/04/21 Admitting Diagnosis IOL, GDM, CHTN OB - DS: Summary OB Procedures : None OB Procedures Intrapartum: Spontaneous Vag Delivery OB Procedures: : None Time Spent with Patient Time attestation: Total time spent providing and/or coordinating discharge services: DS: Data Data Completed and Pending Pending studies at discharge: Pending at discharge 05/03/21 15:11 Surgical [PTH] Routine Discharge Plan Discharge Attending physician on discharge: Nicholas Francis Consulting providers: Holli Meraz ; Isacc Christie Discharging Clinician: Holli Meraz Patient Disposition: Home, Self-Care Activity: pelvic rest Diet: regular Discharge Instructions: Education: Mom and Baby Guide Given to: Mother Follow-Up: Call your delivering provider's office for an appointment to be seen in: 1 Week Mom and baby should come to the [facility] for the follow-up appointment. Appointment Date/Time: April at 8:00 am Call [phone] if you are unable to keep your appointment time. BREAST CARE: * Wear a snug supportive bra. * For engorgement discomfort: Breast Feeding: * Apply warm moist washcloths * Express milk as needed to relieve engorgement * Wear loose clothing Bottle Feeding: * May apply ice packs * For sore nipples: * Identify correct latch-on * Apply warm moist washcloths before and after nursing * Air dry nipples after nursing * May apply Lansinoh cream to nipples EPISIOTOMY/PERINEAL CARE: * Until bleeding stops, use your deb bottle after urinating * Change your pad frequently throughout the day * You may take sitz baths several times a day (fill your bathtub with warm water and soak for 20 minutes.) Do NOT bathe in the water * No tub baths until seen by your physician - You may shower ACTIVITY: * Rest as much as possible. * Do not exercise or lift anything heavier than your baby (such as laundry or other children.) * Avoid stairs or driving as much as possible. * Do not put anything into the vagina. No douching, tampons, or sexual activity until seen by physician. NOTIFY PHYSICIAN IF YOU HAVE ANY QUESTIONS OR IF ANY OF THE FOLLOWING SYMPTOMS OCCUR: * If your episiotomy or incision becomes red, swollen, or more painful than what you have experienced in the hospital. * If your vaginal bleeding becomes foul smelling. * If your vaginal bleeding becomes more heavy than a period or if your bleeding changes from pink to bright red. However, you may pass an occasional walnut-sized clot once or twice for the first week . * If you experience a sharp, shooting pain in you calves. * If you discover a hard, reddened area on your breast or if you experience flu-like symptoms. DIET: * Eat regular, well-balanced meals. * Drink plenty of fluids daily. If , drink to thirst. Patient Instructions: Antibiotic Form Follow-up/Referrals: Holli Meraz CNM [Certified Nurse Staff Research Associate] - 4 Weeks Discharge Medications: Continued docusate sodium 50 mg Capsule 50 mg PO DAILY RF: 0 PNV cmb#95-ferrous fumarate-FA [] 28 mg iron- 800 mcg Tablet 1 tablet PO DAILY RF: 0 sertraline 50 mg tablet 50 mg PO DAILY RF: 0 Discontinued aspirin 81 mg Capsule 81 mg PO DAILY RF: 0 Date of admission: 05/02/21 05:45 Primary Care Provider: Elbert,Eulalia Beltran Admitting Provider: Rosalia Duran Attending physician on admission: Rosalia Duran Condition: Stable
== END 2021-05-04 18:30 | disposition home or self-care (01) | DRG 806 ==
LOC: ANHLDR 05:48 → ANHOB2 05-03 18:16
PROVIDERS: Advanced Practice Midwife; Admitting Provider Obstetrics & Gynecology; PCP Family Medicine; Visit Provider Obstetrics & Gynecology
DX: O24.420 Gestational diabetes mellitus in childbirth, diet controlled (principal); O10.92 Unspecified pre-existing hypertension complicating childbirth; Z37.0 Single live birth; O42.92 Full-term premature rupture of membranes, unspecified as to length of time between rupture and onset of labor; O76 Abnormality in fetal heart rate and rhythm complicating labor and delivery; Z3A.38 38 weeks gestation of pregnancy
CPT/HCPCS: 36415; 80053; 82948; 84550; 85014; 85018; 85025; 85461; 86592; 86850; 86900; 86901; 88307; 90384; A9270; J0290; J2405; J2590; J2790; J2795; J7120

== ENCOUNTER 2022-12-07 01:39 | Day surgery (SDC) | payer BC, SELFPAY ==
[2022-12-04 15:09] VITALS: BMI 52.2
--- NOTE | 2022-12-04 15:13 | PC.NURSE ---
Report to the Outpatient Waiting Room, entrance under the green pavilion located off [facility], at time 1000 on date 12/07/22. Planned Procedure Time: 1200. Time changes happen often and if your time is changed the preop area will call you the afternoon before. - You and your visitor will be asked to self-screen and do not enter if you have any COVID symptoms. - A mask is optional within the hospital at this time. Patients may have clear liquids (water, carbonated beverages, clear teas, apple juice) until 3 hours prior to surgery with a maximum of 20 ounces. - No food from midnight until time of surgery Take the following medications with a SIP of water the morning of surgery: SERTRALINE DO NOT STOP ANY OF YOUR OTHER PRESCRIPTION MEDICATIONS PRIOR TO SURGERY ?EXCEPT THE FOLLOWING Medications to discontinue per physician: VITAMINS/SUPPLEMENTS Date to take last dose: NO MORE UNTIL AFTER SURGERY Please no make-up, nail belarusian, hairspray, perfume, deodorant, or body powder the day of surgery. No jewelry (including any body piercings) or valuables the day of surgery, leave them at home. Please take a shower or bath the night before, or the morning of, surgery with an antibacterial soap. Wear comfortable, loose fitting clothing. - Jewelry must be removed prior to entering the operating room. Rings and piercings that are not removed may be cut off. - The hospital will not accept responsibility for valuables. - Please leave all valuables, including medications, at home the day of surgery. If you are going home after surgery, a licensed tram driver must drive you home. - NO public transportation without another adult if you receive anesthesia. - We recommend that an adult stay with you for 24 hours following discharge. - We also recommend that you do not drive, make important decision, drink alcoholic beverages, or take any drugs that were not prescribed by your health care provider for at least 24 hours after your discharge time. Follow any additional instructions given to you from your surgeon. If you or anyone in your household have experienced Covid symptoms in the past week, please notify your surgeon or the nurse liaison at the phone number below for possible testing. Telephone instructions given to PT - JANA VICENTE and asked if any additional questions and then verbalized understanding. Patient advised to call surgeon office or pre surgery nurse liaison [phone] if any additional questions.
[2022-12-07 10:05] VITALS: BP 130/85; PULSE 78; RESP 16; TEMP 36.6; O2SAT 100; BMI 52.2
[2022-12-07] MEDS: LACTATED RINGERS 1,000 ML 30 ML IV CONT (11:15)
--- NOTE | 2022-12-07 11:43 | P.PNAN_ITS ---
Anes - Initial Pre Proc Eval Procedure: Operation Date: 12/07/22 12:00 Proposed Procedures p Suction Dilation and Curettage - Nicholas Francis MD Date/Time: 12/07/22 11:43 Surgeon: Nicholas Francis MD Pre Op Diagnosis: Missed AB Patient Data Age: 37 Gender: F Height: 1.63 m Weight: 137.9 kg Allergies Allergy/AdvReac Type Severity Reaction Status Date / Time Sulfa (Sulfonamide Allergy Rash Verified 12/07/22 11:23 Antibiotics) Home Medications Medication Instructions Recorded Confirmed Type sertraline 50 mg tablet 50 mg PO DAILY 04/18/21 12/07/22 History vit no.95-ferrous 1 tablet PO DAILY 04/23/21 12/07/22 History fumarate 28 mg-folic acid 800 mcg tablet () cetirizine 10 mg tablet (Zyrtec) 10 mg PO DAILY 12/04/22 12/04/22 History coQ10 (ubiquinol) 200 mg capsule 200 mg PO DAILY 12/04/22 12/07/22 History Patient hx anesthesia problems: none Family hx anesthesia problems: none Results Review: All pre-operative results and documents have been reviewed as part of the pre- operative evaluation. [facility] Family History Family History (Updated 04/23/21 @ 12:18 by Daphney Fulton RN) Other Anxiety Congestive heart failure Depression Diabetes mellitus Hypertension Social History Social History Smoking packs per day: 1 Smoking cigarettes per day: 20.0 Years smoked: 5 Smoking pack-years: 5.00 Smoking status: Former smoker Tobacco type: cigarettes Smoking end date: 02/05/07 Alcohol intake: never Substance use: never Substance use type: does not use Living arrangements: with family Spiritual care concerns: No Anes - Eval Final PreProcedure Day of Procedure 12/07/22 11:43 Patient weight: super morbidly obese Heart: regular rate and rhythm Lungs: clear to auscultation Airway: Mallampati scale class III Neurological: alert and oriented Last oral intake: >/= 8 hours ASA classification: III Emergent: no Anesthetic plan: proceed Anesthesia type and monitoring: general GIVS (LMA if needed) and standard monitoring Results Review: All pre-operative results and documents have been reviewed as part of the pre- operative evaluation. Informed Consent: The patient's anesthetic plan and its attendant risks and benefits were discussed with the patient/family/POA. Questions were solicited and answers provided to the satisfaction of the patient/family/POA.
--- NOTE | 2022-12-07 12:29 | SUR.PREOP ---
1200-Pt aware surgeon delayed by previous surgeon-~1/2 hour. 1228-Dr. Francis aware pt is AB negative-will receive tx in OP phase 2.
--- NOTE | 2022-12-07 12:34 | WPDHPUPDATE1 ---
History and Physical Update Update Date/Time: 12/07/22 12:34 History and Physical has been reviewed, including an updated exam of the patient. There are NO changes in the patient's condition. Risks, benefits, and alternatives have been discussed and questions answered. Patient agrees to proceed with procedure.
--- NOTE | 2022-12-07 13:25 | P.OP_ITS ---
Procedure Note - Detailed Date of Procedure 12/07/22 Pre-op Diagnosis Missed AB Post-op Diagnosis Same Procedure Performed Suction D&C Surgeon Nicholas Francis MD Anesthesia MAC Indications missed Findings normal-appearing vulva vagina and cervix to. Moderate amount of products conception within the uterus. 8 cm uterus Description of Procedure the patient was taken the operating room. She was prepped and draped in dorsal lithotomy position after induction of mac anesthesia. A speculum was placed in the vagina. Cervix grasped with tenaculum. The cervix was dilated to about 1 cm Using Caldera dilators. A 8. Danish curved curette was used to perform suction D&C. The curette was introduced and vacuum was applied. The curette was removed over all surfaces of the intrauterine cavity multiple times. This was done until all the surfaces were clear and had the familiar grainy texture they can be felt through the instrument. A sharp curette was then used to curettage all the surfaces. The suction cup was then reapplied 1 more time to remove any debris. The instruments were removed. The speculum and tenaculum were removed. The patient tolerated the procedure well. She was taken recovery room stable condition. Estimated Blood Loss 50 Drains No Packing No Pathology Yes Complications No immediate complications Condition Stable Disposition PACU
[2022-12-07 13:30] VITALS: BP 112/69; PULSE 73; RESP 16; O2SAT 98
[2022-12-07] MEDS: RHO(D) IMMUNE GLOBULIN 300 MCG/2 ML SYRINGE IM (13:52)
[2022-12-07 14:00] VITALS: BP 119/70; PULSE 65; RESP 16
== END 2022-12-07 14:25 | disposition home or self-care (01) ==
PROVIDERS: Visit Provider Obstetrics & Gynecology
PROC: (CPT 59820; principal; 2022-12-07 12:00)
DX: O02.1 Missed abortion (principal); Z87.891 Personal history of nicotine dependence; Z3A.01 Less than 8 weeks gestation of pregnancy
CPT/HCPCS: 59820; 36415; 85461; 86850; 86900; 86901; 88305; 90384; J1100; J2250; J2405; J2704; J2790; J3010; J7120

== ENCOUNTER 2022-12-20 09:58 | Outpatient (CLI) | payer BC, SELFPAY ==
[2022-12-20 20:54] LABS: Beta HCG Quantitative 50.22 mIU/ML
== END 2022-12-20 09:59 | disposition home or self-care (01) ==
LOC: ANHGOSHLAB 10:03
PROVIDERS: Visit Provider Obstetrics & Gynecology
DX: O02.1 Missed abortion (principal)
CPT/HCPCS: 36415; 84702

== ENCOUNTER 2023-01-03 11:24 | Outpatient (CLI) | payer BC, SELFPAY ==
[2023-01-03 14:50] LABS: Beta HCG Quantitative 4.43 mIU/ML
== END 2023-01-03 11:25 | disposition home or self-care (01) ==
LOC: ANHGOSHLAB 11:31
DX: O03.9 Complete or unspecified spontaneous abortion without complication (principal)
CPT/HCPCS: 36415; 84702

== ENCOUNTER 2023-02-24 07:13 | Outpatient (CLI) | payer OTHER, BC, SELFPAY ==
[2023-02-24 07:36] LABS: Hematocrit 43.2 % (37.0-47.0); Hemoglobin 13.3 g/dL (12.0-15.0); Mean Corpuscular HGB Conc 30.8 g/dl (32-36); Mean Corpuscular Hemoglobin 27.4 pg (26-34); Mean Corpuscular Volume 88.9 fl (80-100); Mean Platelet Volume 11.4 fl (7.4-10.4); Platelet Count Result 278 k/mm3 (150-375); Red Blood Count 4.86 M/mm3 (4.2-5.4); Red Cell Distribution Width 13.4 % (11.5-14.5); White Blood Count 7.6 K/mm3 (4.5-10.0)
[2023-02-24 07:55] LABS: Alanine Aminotransferase 30 U/L (6-35); Alkaline Phosphatase 84 U/L (38-126); Anion Gap 7 mmol/L (8-16); Aspartate Amino Transferase 28 U/L (14-36); Bilirubin,Total 0.6 mg/dL (0.2-1.3); Blood Urea Nitrogen 11 mg/dL (7-17); Calcium 8.6 mg/dL (8.4-10.2); Carbon Dioxide 29 mmol/L (22-30); Chloride 106 mmol/L (98-107); Cholesterol 150 mg/dL (0-200); Estimated Glomerular Filt Rate > 60; Glucose 97 mg/dL (65-110); HDL Direct 41 mg/dL; Potassium 4.2 mmol/L (3.4-5.0); Sodium 142 mmol/L (137-145); Triglycerides 75 mg/dL (<150)
[2023-02-24 07:56] LABS: Hemoglobin A1C 5.9 % (<5.7)
[2023-02-24 08:07] LABS: LDL Cholesterol Direct 87 mg/dL
[2023-02-27 22:03] LABS: Vitamin D 1,25 (OH)2 Total 45 pg/mL (18-72); Vitamin D2 1,25 (OH)2 <8 pg/mL; Vitamin D3 1,25 (OH)2 45 pg/mL
== END 2023-02-24 07:14 | disposition home or self-care (01) ==
LOC: ANHLAB 07:16
PROVIDERS: PCP Family Medicine; Visit Provider Family Medicine
DX: E55.9 Vitamin D deficiency, unspecified (principal); E66.9 Obesity, unspecified; F41.9 Anxiety disorder, unspecified; K76.0 Fatty (change of) liver, not elsewhere classified; R73.09 Other abnormal glucose; Z79.899 Other long term (current) drug therapy
CPT/HCPCS: 36415; 80053; 80061; 82652; 83036; 84443; 85027

== ENCOUNTER 2023-09-25 15:19 | Outpatient (CLI) | payer OTHER, BC, SELFPAY ==
[2023-09-25 19:06] LABS: Beta HCG Quantitative 28.78 mIU/ML
[2023-09-27 07:18] LABS: Progesterone 18.9 ng/mL
== END 2023-09-25 15:20 | disposition home or self-care (01) ==
LOC: ANHGOSHLAB 15:23
PROVIDERS: PCP Family Medicine
DX: N91.2 Amenorrhea, unspecified (principal)
CPT/HCPCS: 36415; 84144; 84702

== ENCOUNTER 2023-09-27 08:14 | Outpatient (CLI) | payer OTHER, BC, SELFPAY ==
[2023-09-28 10:54] LABS: Progesterone 16.5 ng/mL
== END 2023-09-27 08:15 | disposition home or self-care (01) ==
LOC: ANHGOSHLAB 08:17
PROVIDERS: PCP Family Medicine
DX: N91.2 Amenorrhea, unspecified (principal)
CPT/HCPCS: 36415; 84144; 84702

== ENCOUNTER 2023-10-16 13:05 | Outpatient (RCR) | payer OTHER, BC, SELFPAY ==
[2023-10-16] MEDS: RHO(D) IMMUNE GLOBULIN 300 MCG/2 ML SYRINGE IM (15:33)
[2023-10-16 15:46] LABS: Beta HCG Quantitative 60.86 mIU/ML
== END 2024-01-14 23:59 | disposition home or self-care (01) ==
LOC: ANHLAB 13:05
PROVIDERS: PCP Family Medicine; Visit Provider Obstetrics & Gynecology
DX: Z29.13 Encounter for prophylactic Rho(D) immune globulin (principal); O36.0130 Maternal care for anti-D [Rh] antibodies, third trimester, not applicable or unspecified; Z3A.00 Weeks of gestation of pregnancy not specified
CPT/HCPCS: 36415; 84702; 85461; 86850; 86900; 86901; 90384; 96372; J2790

== ENCOUNTER 2023-10-23 08:41 | Outpatient (CLI) | payer OTHER, BC, SELFPAY ==
[2023-10-23 14:42] LABS: Beta HCG Quantitative < 2.39 mIU/ML
== END 2023-10-23 08:42 | disposition home or self-care (01) ==
LOC: ANHGOSHLAB 08:43
PROVIDERS: PCP Family Medicine; Visit Provider Obstetrics & Gynecology
DX: O03.9 Complete or unspecified spontaneous abortion without complication (principal)
CPT/HCPCS: 36415; 84702

== ENCOUNTER 2024-05-19 14:47 | Outpatient (CLI) | payer OTHER, BC, SELFPAY ==
--- NOTE | ~2024-05-19 | MM_ITS ---
EXAMINATION: MM screening candis BI w william HISTORY: Screening TECHNIQUE: Craniocaudal and mediolateral oblique 3-D tomosynthesis images were obtained and synthetic 2-D images were generated. CAD analysis was submitted and interpreted. COMPARISON: No prior mammogram is available for comparison at this institution. BREAST PARENCHYMAL COMPOSITION: Not Dense: The breasts are almost entirely fatty. FINDINGS: There is no evidence of suspicious mass, calcification, or architectural distortion to sugg est malignancy in either breast. There has been no suspicious interval change. IMPRESSION: 1. No mammographic evidence of malignancy. 2. Recommend routine screening mammography in one year. BI-RADS Category 1: Negative Reviewed, dictated and finalized at location B.
--- OUTSIDE RECORDS SUMMARY | 2024-05-19 16:35 | XMS_ITS | Data Portability ---
Author Organization [facility] [place] Address [address] [place] [address] [place] [address] Care Team Providers Care Character Actress Name Role Phone MATTHEW QUINONES Primary Care Provider Assessment No assessment recorded. Plan of Treatment Reminders Order Date Submit Date Provider Last Modified By Organization Details Last Modified Time Details Appointments None recorded. Lab test, [email or web address] [place], [address], [place], [address], 3 16:49:58 Referral None recorded. Procedures None recorded. Surgeries None recorded. Imaging US, obstetric, transvagina l 2023 024 [facility] [place], [address], [place], [address], 4 23:10:42 US, obstetric, transvagina l 2022 023 [facility] [place], [address], [place], [address], 3 20:04:11 Medication Orders None recorded. Patient TargetsNo targets recorded. Patient InstructionsNo instructions recorded. Reason for Referral None Reported. Results Created Date Observation Date Name Description Value Unit Range Abnormal Flag Note LastModifiedBy Organization Detail LastModifiedTime 12/02/1912/01/2022 BHCG, QUANT ITATI VE B-HCG 99321. 0 mIU/m L This assay was perfo rmed using [employer] ratio n reage nts and test kits. Value s obtai phuong with other assay metho ds or kits canno t be used inter jose eably . Refer ence Range s: Non-p regna nt, preme nopau meryl women : 0.0-5 .3 mIU/m L Postm enopa usal women : 0.0-7 .0 mIU/m L Sugar l Pregn cydney: Gesta andrew l Age bHCG Conc. - mIU/m L 3 Weeks 5.8 - 71.7 4 Weeks 9.5 - 750 5 Weeks 217-7 138 6 Weeks 158 - 31,79 5 7 Weeks 3,697 - 162,5 63 8 Weeks 32,06 5 - 149,5 71 9 Weeks 63,80 3 - 151,4 10 10 Weeks 46,50 9 - 186,9 77 12 Weeks 27,83 2 - 210,6 12 14 Weeks 13,95 0 - 62,53 0 15 Weeks 12,03 9 - 70,97 1 16 Weeks 9,040 - 56,45 1 17 Weeks 8,175 - 55,86 8 18 Weeks 8,099 - 58,17 6 Not Available [facility] (Lab) [address], [place], [address], 12/02/2022 05:59:33 12/02/19 23 12/01/2022 TYPE/ RH/SC REEN ABO/Rh type AB NEG Not Available [facility] (Lab) [address], [place], [address], 12/02/2022 05:59:33 12/02/19 23 12/01/2022 TYPE/ RH/SC REEN antibody screen NEG Not Available [facility] (Lab) [address], [place], [address], 12/02/2022 05:59:33 12/02/19 23 12/01/2022 TYPE/ RH/SC REEN exp date 2022 23:59 Not Available [facility] (Lab) [address], [place], [address], 12/02/2022 05:59:33 12/14/19 23 12/13/2022 pregn cydney test, urine HCG positi ve Not Available [place] [address], [place], [address], 12/13/2022 16:49:42 10/17/19 24 10/17/2023 DHEA SULFA TE DHEA-sulfate 83 ug/dL Femal e Range s Age(y ) Range (ug/d L) 10-15 34-28 0 15-20 65-36 8 20-25 148-4 07 25-35 99-34 0 35-45 61-33 7 45-55 35-25 6 55-65 19-20 5 65-75 9-246 > 75 12-15 4 Not Available [facility] (Lab) [address] [facility], [place], [address], 10/23/2023 19:22:40 10/17/19 24 10/17/2023 ESTRA DIOL estradiol 74.1 pg/mL This assay was perfo rmed using [employer] n reage nts and test kits. Value s obtai phuong with other assay metho ds or kits canno t be used inter jose eably . Femal e Estra diol Range s: Folli cular phase 12.4- 233 pg/mL Ovula tion phase 41.0- 398 pg/mL Lutea l phase 22.3- 341 pg/mL Postm enopa usal <5-13 8 pg/mL Healt hy Pregn ant Women 1st Trime ster 154-3 243 pg/mL 2nd Trime ster 1561- 57006 pg/mL 3rd Trime ster 8525- >3000 0 pg/mL Not Available [facility] (Lab) [address] [facility], [place], [address], 10/23/2023 19:22:41 10/17/19 24 10/17/2023 PROLA CTIN prolactin, total 13.80 NG/mL 4.79-2 3.30 This assay was perfo rmed using [employer] n reage nts and test kits. Value s obtai phuong with other assay metho ds or kits canno t be used inter [facility] . Not Available [facility] (Lab) [address] [facility], [place], [address], 10/23/2023 19:22:41 10/17/19 24 10/17/2023 LH (LUTE NIZIN G HORMO NE) LH 1.3 mIU/m L This assay was perfo rmed using [employer] n reage nts and test kits. Value s obtai phuong with other assay metho ds or kits canno t be used inter [facility] . Femal es Mid-F ollic ular: 2.4-1 2.6 mIU/m L Mid-C ycle: 14.0- 95.6 mIU/m L Mid-L uteal : 1.0-1 1.4 mIU/m L Postm enopa use: 7.7-5 8.5 mIU/m L Not Available [facility] (Lab) [address] [facility], [place], [address], 10/23/2023 19:22:42 10/17/19 24 10/17/2023 FSH FSH 2.4 mIU/m L This assay was perfo rmed using [employer] ratio n reage nts and test kits. Value s obtai phuong with other assay metho ds or kits canno t be used inter [facility] . Femal es Folli cular : 3.5-1 2.5 mIU/m L Ovula tion: 4.7-2 1.5 mIU/m L Lutea l: 1.7-7 .7 mIU/m L Postm enopa use: 25.8- 134.8 mIU/m L Not Available [facility] (Lab) [address] [place], [address], 10/23/2023 19:22:42 10/17/19 24 10/17/2023 PROGE STERO NE progesterone 0.49 NG/mL This assay was perfo rmed using [employer] ratio n reage nts and test kits. Value s obtai phuong with other assay metho ds or kits canno t be used inter jose eably . Femal e Proge stero ne Range s: Folli cular phase 0.06- 0.89 ng/mL Ovula tion phase 0.12- 12.00 ng/mL Lutea l phase 1.83- 23.90 ng/mL Postm enopa usal <0.05 -0.13 ng/mL Healt hy Pregn ant Women 1st Trime ster 11.0- 44.30 2nd Trime ster 25.40 -83.3 0 3rd Trime ster 58.70 -214. 00 Not Available [facility] (Lab) [address] [facility], [place], [address], 10/23/2023 19:22:42 10/17/19 24 10/17/2023 TSH, REFLE X FREE T4 TSH 3.37 uIU/m L 0.30-5 .33 Not Available [facility] (Lab) [address] [facility], [place], [address], 10/23/2023 19:22:43 10/17/19 24 10/17/2023 HUMAN SEX HORMO NE RON NG GLOBU CHRISSIE sex hormone binding globulin 46.2 nmole s/L 18.2-1 35.5 Not Available [facility] (Lab) [address] [place], [address], 10/23/2023 19:22:43 10/17/19 24 10/17/2023 HEMOG LOBIN A1C hemoglobin A1C 5.9 % 0-5.6 high The Ameri can Diabe samy Assoc iatio n recom mends that a prima ry goal of thera py bridgette smith be a HBA1C of < 7% and that physi cians shoul d reeva luate the treat ment regim en in patie nts with HBA1C value s consi stent ly > 8%. <5.7% Sugar l 5.7 - 6.4% Incre ased risk for diabe samy >=6.5 % Diagn ostic of diabe samy <7.0% Goal of thera py >8.0% Actio n sugge sted Not Available [facility] (Lab) [address] [facility], [place], [address], 10/23/2023 19:22:44 10/17/19 24 10/17/2023 ANTIM JORGELER YARITZA HORMO NE (AMH) anti-mulleri an hormone (amh) 0.06 NG/mL Femal e Refer ence Range s 20-24 years : 1.22 - 11.70 ng/mL 25-29 years : 0.89 - 9.85 ng/mL 30-34 years : 0.58 - 8.13 ng/mL 35-39 years : 0.15 - 7.49 ng/mL 40-44 years : 0.03 - 5.47 ng/mL The follo wing resul ts were obtai phuong with the [employer] assay . Resul ts from assay s of other [facility] act[facility] es canno t be used inter jose ably. Not Available [facility] (Lab) [address], [place], [address], 10/23/2023 19:22:44 10/17/19 24 10/17/2023 TESTO STERO NE, FREE( DIALY SIS) AND TOTAL (LC/M S/MS) testosterone , total 40 NG/dL 2-45 For addit ional infor ralph rogel e refer to http: //ankush higgins.que stdia gnost ics.c om/fa q/ Total Testo stero neLCM SMSFA Q165 (This link is being provi ded for infor carla esposito/ educa andrew l purpo ses only. ) This test was devel oped and its pratik tical perfo rmanc e huong cteri stics have been deter mined by [facility] reece ames, [place]. It has not been clear ed or appro lizbeth by the U.S. Food and Drug Admin istra tion. This assay has been valid ated pursu ant to the CLIA regul ation s and is used for clini sylvie purpo ses. Not Available [facility] (Lab) [address] , [place], [address], 10/23/2023 19:22:45 10/17/19 24 10/17/2023 TESTO STERO NE, FREE( DIALY SIS) AND TOTAL (LC/M S/MS) testosterone , free 5.8 pg/mL 0.1-6. 4 This test was devel oped and its pratik tical perfo rmanc e huong cteri stics have been deter mined by [employer] [place], [place]. It has not been clear ed or appro lizbeth by the U.S. Food and Drug Admin istra tion. This assay has been valid ated pursu ant to the CLIA regul ation s and is used for clini sylvie purpo ses. Perfo rming Organ izati on Infor matio n: Site ID: [id number] Name: [employer] afshin Ninao kerri [facility] Addre ss: [id number] [address] [place], [place] Direc tor: Terrance Banuelos MD PhD Not Available [facility] (Lab) [address] [facility], [place], [address], 10/23/2023 19:22:45 10/17/19 24 10/17/2023 17-OH PROGE STERO NE 17-hydroxypr ogesterone, lc/MS/MS 34 NG/dL Adult Femal e Refer ence Range s for 17-Hy droxy proge stero ne: Pre-M enopa usal Mid Folli cular : 23-10 2 ng/dL Pre-M enopa usal Surge : 67-34 9 ng/dL Pre-M enopa usal Mid Lutea l: 139-4 31 ng/dL Postm enopa usal Phase : < or = 45 ng/dL Pregn cydney: First Trime ster: 78-45 7 ng/dL Secon d Trime ster: 90-35 7 ng/dL Third Trime ster: 144-5 78 ng/dL This test was devel oped and its pratik tical perfo rmanc e huong cteri stics have been deter mined by [employer]. It has not been clear ed or appro lizbeth by FDA. This assay has been valid ated pursu ant to the CLIA regul ation s and is used for clini sylvie purpo ses. Perfo rming Organ izati on Infor carla n: Site ID: [id number] Name: Risa pepe s/Jamison cheri [facility] , Addre ss: [id number] [place] [address] Direc tor: Stephanie bo MD,Ph D,JHONATAN Not Available [facility] (Lab) [address], [place], [address], 10/23/2023 19:22:45 12/02/19 23 12/01/2022 US, obste tric, 1st trime ster No observ ation record ed. [email or web address], [place], [address], 12/03/2022 17:02:26 12/02/19 23 12/01/2022 US, obste tric, trans vagin al No observ ation record ed. [facility] [address], [place], [address], 12/01/2022 18:05:12 12/05/19 23 12/04/2022 US, obste tric, trans vagin al No observ ation record ed. [email or web address] [place] [address], [place], [address], 12/04/2022 13:48:05 12/05/19 23 12/04/2022 US, obste tric, trans vagin al No observ ation record ed. [email or web address] [address], [place], [address], 12/04/2022 21:44:19 10/16/19 24 10/16/2023 US, obste tric, trans vagin al No observ ation record ed. [email or web address] [place] [address], [place], [address], 10/16/2023 18:27:47 10/16/19 24 10/16/2023 US, obste tric, trans vagin al No observ ation record ed. [email or web address] [address], [place], [address], 10/16/2023 23:22:10 Result Notes None recorded. 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 16:25:[address] Concept Completed 201410/06/2020 Encntr for general adult medical exam w/o abnormal findings ;Recorde d Elsewher e: No Locat ion: [facility] S ource: EHR Sales And Customer Relations Rep jamison: N Practi ce ID: [id number] Buzz lable Time: 11:00:00 AM Pina cardenas [facility] 16:25:53 Infectio n screenin g Completed 201610/06/2020 Encounte r for screenin g for oth infec/pa rastc diseases ;Recorde d Elsewher e: No Locat ion: [facility] S ource: EHR Sales [employer] Customer Relations Rep jamison: N Practi ce ID: [id number] Buzz lable Time: 03:30:00 PM Pina cardenas [facility] 16:25:47 Screenin g for malignan t neoplasm of cervix Completed 201410/06/2020 Encounte r for screenin g for malignan t neoplasm of cervix;R ecorded Elsewher e: No [facility]: EHR Sales And Customer Relations Rep jamison: N Practi ce ID: [id number] Buzz lable Time: 11:00:00 AM Pina Gonsalvestz theresa, [facility] [address] 16:25:[address] Concept Completed 201710/06/2020 Encntr for system consultant exam (general ) (routine ) w/o abn findings ;Recorde d Elsewher e: No Locat ion: [facility] S ource: EHR Sales [employer] Customer Relations Rep jamison: N Oswaldo ce ID: [id number] Buzz lable Time: 08:30:[address] [facility], [facility] 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, [facility] 16:25:57 Syphilis test finding [id number] Completed 201610/06/2020 Encntr screen for infectio ns w sexl mode of transmis s;Record ed Elsewher e: No Locat ion: [facility] S ource: EHR Sales And Customer Relations Rep jamison: N Oswaldo ce ID: [id number] Buzz lable Time: 08:30:00 AM Pina Gonsalvestz theresa, [facility] 1 16:26:00 Speciali zed medical examinat ion Completed 201310/06/2020 Other specifie d chlamydi al diseases ;Recorde d Elsewher e: No Locat ion: [facility] S ource: EHR Sales And Customer Relations Rep jamison: N Ericti ce ID: [id number] Buzz lable Time: 12:30:[address] [facility], [facility] 1 16:25:58 Pregnanc y test negative [id number] Completed 201410/06/2020 Encounte r for pregnanc y test, result negative ;Recorde d Elsewher e: No Locat ion: [facility] S ource: EHR Sales And Customer Relations Rep jamison: N Ericti ce ID: [id number] Buzz lable Time: 11:00:[address] [facility], [facility] 16:25:49 Educatio n Completed 201310/06/2020 Other general counseli ng and advice on contrace ptive manageme nt;Recor ded Elsewher e: No Locat ion: [facility] S ource: EHR Sales And Customer Relations Rep jamison: N Ericti ce ID: [id number] Buzz lable Time: 09:00:[address] [facility], [facility] 16:25:43 Adult health examinat ion Completed 201310/06/2020 ROUTINE MEDICAL EXAM;Rec orded Elsewher e: No Locat ion: [facility] S ource: EHR Sales [employer] Customer Relations Rep jamison: N Ericti ce ID: [id number] Buzz lable Time: 12:30:00 PM Pina Munguia theresa [facility] 16:25:39 Vaginola bial hernia Completed 201610/06/2020 Other specifie d noninfla mmatory disorder s of vagina;R ecorded Elsewher e: No Locat ion: [facility] S ource: EHR Sales [employer] Customer Relations Rep jamison: N Ericti ce ID: [id number] Buzz lable Time: 03:30:00 PM Pina cardenas [facility] 1 16:26:02 Venereal disease screenin g Completed 201310/06/2020 Screenin g examinat ion for venereal disease; Recorded Elsewher e: No Locat ion: [facility] S ource: EHR Sales And Customer Relations Rep jamison: N Ericti ce ID: [id number] Buzz lable Time: 03:30:00 PM Pina cardenas [facility] 16:26:06 Finding of fertilit y Completed 201710/06/2020 Female infertil ity, unspecif ied;Cuate rded Elsewher e: No Locat ion: Edwige rodriguez [facility] S ource: EHR Sales And Customer Relations Rep jamison: N Practi ce ID: [id number] Buzz lable Time: 03:00:00 PM Pina cardenas, [facility] 16:25:45 At increase d risk of sexually transmit marcel infectio n [id number] Completed 201310/06/2020 Contact with or exposure to venereal diseases ;Practic e ID: 0001 Pina cardenas, [facility] 16:25:41 Diabetes mellitus during pregnanc y, childbir th and the puerperi um [id number] Completed 202001/07/2021 Rosalia Duran MD [address], [place], [address], , P.C. 16:19:58 Pregnanc y 06246650 Completed 202005/24/2021 Justine cardenas, [facility] 2 12:29:56 Prediabe samy [id number] Completed elevated ha1c - pt checking sugars QID Justine cardenas [facility] 2 12:29:47 Blood group AB Rh(D) negative 691211779 Completed rhogam 10/01, @ at 28 wks Justine cardenas [facility] 2 12:29:47 Ex-smoke r 4497770 Active 2020 quit 2007 Rosalia Duran MD [address], [place], [address], , P.C. 1 11:14:56 Body mass index 40+ - severely obese 709143337 Completed BMI 51, discusse d antenata l testing Justine Kimble l null, [facility] 2 12:29:47 Mixed anxiety and depressi ve disorder 332514771 Completed 12/27- started on Zoloft 50mg. Increase in anxiety - f/u on mood 01/07 Justine Kimble l null, [facility] 2 12:29:47 Advanced maternal age 763363889 Completed Justine Geetieh l null, [facility] 2 12:29:47 Chronic hyperten estela in obstetri c context 1833020 Completed new diagnosi s, alinaata l testing at 32 weeks, will take ASA [facility] 12:29:47 Mixed anxiety and depressi ve disorder 885869776 Active 12/27- started on Zoloft 50mg. Increase in anxiety - f/u on mood 01/07 Justine Kimble l null, [facility] 2 12:29:47 Blood group AB Rh(D) negative 496068813 Active rhogam 10/01, @ at 28 wks Justine biswas null, [facility] 2 12:29:47 Gestatio nal diabetes mellitus class A1 60750568 Completed checking sugars QID Justine Kimble l [facility], [facility] 2 12:29:47 Ultrasou nd scan abnormal [id number] Completed LV EIF- repeat US 28w Justine Kimble l [facility] 2 12:29:47 History of hyperten estela 706429964 Active [address] [facility], [facility] 2 14:11:58 Problem Notes None recorded. Procedures Surgical History Date Name Laterality Status Provider Name and Address Organization Details Recorded Time 3 SUCTION DILATION & CURETTAGE (SURG) completed Ade Lakhani [facility] 02/20/2023 18:09:01 2 Date of Last Pap Smear completed Pinakira Munguia [facility] 12/23/2021 14:12:24 3 extraction of wisdom tooth [facility] 12/23[facility] 14:13:00 Imaging Results Imaging Date Name Status LastModified by Organization Details LastModified Time 12/01/2022 US, obstetric, 1st trimester completed [email or web address] [address], [place], [address], 12/03/2022 17:02:26 12/01/2022 US, obstetric, transvaginal completed mata [place] [address], [place], [address], 12/01/2022 18:05:12 12/04/2022 US, obstetric, transvaginal completed [email or web address] [place] [address], [place], [address], 12/04/2022 13:48:05 12/04/2022 US, obstetric, transvaginal completed [email or web address] [address], [place], [address], 12/04/2022 21:44:19 10/16/2023 US, obstetric, transvaginal completed kaur [place] [address], [place], [address], 10/16/2023 18:27:47 10/16/2023 US, obstetric, transvaginal completed [email or web address] [address], [place], [address], 10/16/2023 23:22:10 Procedure Notes None recorded. Medical Equipment None Reported. Allergies Allergen ID Allergen Name Allergen Category Reaction Reaction Severity Criticality Documentation Date Start Date Code Code System Note Provider Name and Address Organization Details Recorded Time Substance with sulfonami de structure and antibacte rial mechanism of action (substanc e) medicatio n Not available Not available Not available 12/23/2021 03319 [id number] SNOMED P[address] [facility] 14:10:56 Medications Name Sig Start Date Stop Date Status Note LastModified by Organization Details LastModified Time freestyle mis lancets 06/03 completed Not Available Not Available Not Available fluoxetin e 40 mg capsule take 1 capsule by oral route every day in the morning 12/04 completed Prescrib ed Elsewher e: Yes Loca tion: [facility] odify By: [email or web address] trick En counter DateTime : 09/09/19 14 12:30:00 PM Not Available Not Available Not Available Mirena 21 mcg/24 hr (up to 8 years) 52 mg intrauter ine device 12/04 completed Prescrib ed Elsewher e: Yes Loca tion: [facility] odify By: [email or web address] trick En counter DateTime : 12/05/19 14 09:00:00 AM Not Available Not Available Not Available azithromy corazon 250 mg tablet TAKE 2 TABLETS BY MOUTH TODAY, THEN TAKE 1 TABLET DAILY FOR 4 DAYS DIRECTED 10/16 completed Not Available Not Available Not Available fluconazo le 150 mg tablet TAKE 1 TABLET BY MOUTH EVERY DAY FOR 1 DAY 12/23 completed Not Available Not Available Not Available clomiphen e citrate 50 mg tablet take 1 tablet by oral route every day days 5-9 of cycle 10/06 completed Prescrib ed Elsewher e: No Locat ion: [facility] odify By: jhonny Durán er DateTime : 11/22/19 19 02:44:21 PM Not Available Not Available Not Available FreeStyle Lancets 28 gauge 12/23 completed Not Available Not Available Not Available phentermi ne 37.5 mg tablet TAKE 1 TABLET BY MOUTH EVERY DAY 10/16 completed Not Available Not Available Not Available ciproflox acin 500 mg tablet TAKE 1 TABLET BY MOUTH TWICE A DAY FOR 5 DAYS 10/06 completed Not Available Not Available Not Available sulfameth oxazole 800 mg-trimet hoprim 160 mg tablet TAKE 1 TABLET BY MOUTH EVERY 12 HOURS 12/23 completed Not Available Not Available Not Available Metrogel Vaginal 0.75 % (37.5 mg/5 gram) insert 1 applicat orful by vaginal route every day at bedtime 09/14 completed Prescrib ed Elsewher e: No [facility] By: francisco Gandhi r DateTime : 08/19/19 17 10:46:23 AM Not Available Not Available Not Available Flagyl 500 mg tablet take 1 tablet by oral route every 12 hours 11/28 completed Prescrib ed Elsewher e: No [facility] odify By: cortney Gandhi r DateTime : 07/30/19 19 02:24:55 PM Not Available Not Available Not Available cephalexi n 500 mg capsule TAKE 1 CAPSULE BY MOUTH EVERY 8 HOURS 12/23 completed Not Available Not Available Not Available bupropion HCl 75 mg tablet take 1 tablet by oral route 3 times every day 11/28 completed Prescrib ed Elsewher e: Yes [facility] odify By: cortney Gandhi r DateTime : 09/15/19 17 04:30:00 PM Not Available Not Available Not Available hydrochlo rothiazid e 12.5 mg capsule TAKE 1 CAPSULE BY MOUTH EVERY DAY 11/05 completed Not Available Not Available Not Available methylpre dnisolone 4 mg tablets in a dose pack TAKE 6 TABLETS ON DAY 1 DIRECTED ON PACKAGE AND DECREASE BY 1 TAB EACH DAY FOR A TOTAL OF 6 DAYS 10/16 completed Not Available Not Available Not Available metformin ER 500 mg tablet,ex tended release 24 hr TAKE 1 TABLET BY MOUTH TWICE A DAY active Not Available Not Available No t Available sertralin e 50 mg tablet TAKE 1 TABLET BY MOUTH EVERY DAY 10/16 completed Not Available Not Available Not Available Diflucan 200 mg tablet take 1 tablet by oral route every day 09/14 completed Prescrib ed Elsewher e: No Locat ion: Radha jennifer [facility] odify By: francisco vanegas DateTime : 08/19/19 10:46:23 AM Not Available Not Available Not Available metoclopr amide 10 mg tablet TAKE 1 TABLET BY MOUTH FOUR TIMES A DAY FOR 14 DAYS 12/23 completed Not Available Not Available Not Available Adult Aspirin 81 mg tablet 12/23 completed Not Available Not Available Not Available Vitamins and Minerals tablet 11/28 completed Prescrib ed Elsewher e: Yes Loca tion: [facility] odify By: jveronica vanegas DateTime : 09/15/19 17 04:30:00 PM Not Available Not Available Not Available NuvaRing 0.12 mg-0.015 mg/24 hr vaginal INSERT 1 RING VAGINALL Y EVERY MONTH LEAVE IN 3 WEEKS AND REMOVE FOR 1 WEEK 05/05 completed Prescrib ed Elsewher e: No Locat ion: Edwige rodriguez [facility] odify By: [email or web address] z Encoun ter DateTime : 01/16/20 15 11:00:00 AM Not Available Not Available Not Available aspirin 06/03 completed Not Available Not Available Not Available 12/23 completed Not Available Not Available Not Available FreeStyle Lite Strips 12/23 completed Not Available Not Available Not Available FreeStyle [place] Lite kit 12/23 completed Not Available Not Available Not Available Vitals Date Recorded Body height Body mass index (BMI) Body weight Systolic blood pressure Diastolic blood pressure Provider Name and Address Organization Details Last Updated DateTime 12/04/2022 161.29 cm 53.5 kg/m2 926541.8 6 g 162 mm[Hg] 85 mm[Hg] Keyla Colin [facility] 3 14:15:39 Date Recorded Body height Body mass index (BMI) Body weight Systolic blood pressure Diastolic blood pressure Provider Name and Address Organization Details Last Updated DateTime 12/13/2022 161.29 cm 53.5 kg/m2 738701.8 6 g 131 mm[Hg] 82 mm[Hg] Keyla Colin [facility] 3 16:46:46 Date Recorded Body height Body mass index (BMI) Body weight Systolic blood pressure Diastolic blood pressure Systolic blood pressure Diastolic blood pressure Provider Name and Address Organization Details Last Updated DateTime 4 161.29 cm 55.1 kg/m2 969252. 19 g 163 mm[Hg] 85 mm[Hg] 158 mm[Hg] 88 mm[Hg] Pina Munguia [facility] 4 11:32:53 Social History Question Answer Notes LastModified by Organizat ion Details LastModified Time Tobacco Smoking Status Former Smoker Keyla Colin theresa [facility] 12/13/2022 16:46:55 Do You Have An Advance Directive? No [email or web address] Information not available 10/06/2020 What Is Your Level Of Alcohol Consumption? Occasional [email or web address] Information not available 10/06/2020 If You Are , What Was Your Level Of Alcohol Consumption Prior To ? None Information not available 12/13/2022 Are You Blind Or Do You Have Difficulty Seeing? No [email or web address] Information not available 10/06/2020 What Is Your Level Of Caffeine Consumption? Moderate Information not available 12/13/2022 In The 14 Days Before Symptom Onset, Have You Had Close Contact With A Laboratory-confir med COVID-19 While That Case Was Ill? No [email or web address] Information not available 10/06/2020 In The 14 Days Before Symptom Onset, Have You Had Close Contact With A Person Who Is Under Investigation For COVID-19 While That Person Was Ill? No [email or web address] Information not available 10/06/2020 Have You Been To An Area Known To Be High Risk For COVID-19? No [email or web address] Information not available 10/06/2020 Are You Deaf Or Do You Have Serious Difficulty Hearing? No [email or web address] Information not available 10/06/2020 What Type Of Diet Are You Following? REGULAR [email or web address] Information not available 10/06/2020 What Is The Highest Grade Or Level Of School You Have Completed Or The Highest Degree You Have Received? 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 Yes [email or web address] Information not available 10/06/2020 Do You Use Protection During Sex? No [email or web address] Information not available 10/06/2020 Do You Use Your Seat Belt Or Car Seat Routinely? Yes [email or web address] Information not available 10/06/2020 Do You Have Smoke And Carbon Monoxide Detectors In Your Home? Yes [email or web address] Information not available 02/21/2021 How Much Tobacco Do You Smoke? No [email or web address] Information not available 10/06/2020 Do You Feel Stressed (tense, Restless, Nervous, Or Anxious, Or Unable To Sleep At Night)? [id number] Information not available 02/02/2021 Do You Use Any Illicit Or Recreational Drugs? No Information not available 10/06/2020 Do You Use Sunscreen Routinely? Yes [email or web address] Information not available 10/06/2020 Has Tobacco Cessation Counseling Been Provided? No Information not available 12/13/2022 Have You Used IV Drugs? No [email or web address] Information not available 10/06/2020 Do You Or Have You Ever Used Any Other Forms Of Tobacco Or Nicotine? No Information not available 12/13/2022 Sex: Unknown Functional Status Question Answer Note LastModified by Organizat ion Details LastModified Time Do you have difficulty walking or climbing stairs? No Information not available 12/13/2022 Are you able to walk? YESWOREST [email or web address] Information not available 10/06/2020 Are you able to care for yourself? Yes Information not available 12/13/2022 Do you have difficulty dressing or bathing? No Information not available 12/13/2022 What is your exercise level? Occasional Information not available 10/06/2020 Mental Status None recorded. Family History Relationship Description Onset Age of this Age Resolved Age Notes LastModified by Organization Details LastModified Time Father Diabetes mellitus [email or web address] Not available 10/06 12:30:31 Father Heart disease [email or web address] Not available 10/06 16:25:18 Father Hypertensive disorder [email or web address] Not available 10/06 16:25:18 Maternal Grandmother Diabetes mellitus [email or web address] Not available 10/06 12:30:31 Maternal Grandmother Hypertensive disorder [email or web address] Not available 10/06 16:25:18 Paternal Grandfather Heart disease [email or web address] Not available 10/06 16:25:18 Paternal Grandmother Heart disease [email or web address] Not available 10/06 16:25:18 Paternal Grandmother Disorder of thyroid gland Not available 10/06 16:25:18 Maternal Grandfather Heart disease [email or web address] Not available 10/06 16:25:18 Sister Depressive disorder Not available 10/06 16:25:18 Sister Anxiety disorder [email or web address] Not available 10/06 16:25:18 Daughter Depressive disorder [email or web address] Not available 10/06 16:25:18 Daughter Anxiety disorder [email or web address] Not available 10/06 16:25:18 Medical History Condition Response Other N Blood Transfusion N Dermatologic Disorders N Gestational Diabetes Y Anxiety Disorder Y Autoimmune disease N Arthritis N Polyps N Infertility N Acid Reflux (GERD) N Cancer N Varicosities N Stroke N Neurologic/Epilepsy N Fibromyalgia N Headaches N Kidney Disease N Heart Problems N Kidney or Bladder Problems N Eating Disorder N Art (IVF or FET) N Hepatitis/Liver Disease N No Past Medical History N Urinary Tract Infection N Asthma N Trauma/Violence N Thrombophilias N Allergies (Food, seasonal, environmental ) N Breast Cancer N Drug/Latex Allergies/Reactions N Lung Disease N Defects or Inherited Disease N Breast Problem N Hematologic disorders N Anesthesia Complications N History of STI N Deep Vein Thrombosis N Polycystic ovary syndrome N History of abnormal pap N Endometriosis N High Cholesterol N Thyroid Problems N GI Problems N Anemia N Psychiatric Illness N Ovarian Cancer N Diabetes Y Pulmonary (TB, Asthma) N Eczema N Abuse/Domestic Violence N Depression/ depression Y Heart Disease N Pre-Eclampsia N Hypertension Y Osteoporosis N Gynecological History Statement/Question Response Date of Last Mammogram Date of LMP 08/29/2023 N On BCP's at Conception? N STIs/STDs N Was last menstrual period normal Y HPV Vaccine N Duration of Flow (days) 5 Current Control Method None Age at First Child 22 Are cycles usually normal Y Date of Last Colonoscopy Frequency of Cycle (Q days) 26 Sexually Active? Y Menses Monthly Y Date of DEXA bone scan Age of first menstrual cycle 11 Date of Last Pap Smear 12/23/2021 Sexual Problems? N LMP Definite Desired Control Method N Obstetrics History GPAL:G 4 P 2 0 2 2 Type Value Full Term 2 Spontaneous 2 Living 2 Total 4 Past Encounters Encounter ID Performer Location Encounter Start Date Encounter Closed Date Diagnosis/Indication Diagnosis SNOMED-CT Code Diagnosis ICD10 Code Diagnosis Note [id number] Ann Obregon [facility] [address],[place] [address] 10/01/2020 15:07:53 10/03/2020 22:37:31 Threatened miscarriage 95780189 O20.0 Z3A.01 [id number] [address],[place] [address] 10/06/2020 15:50:39 10/06/2020 17:56:43 Gynecologic examination 11488892 Z01.419 Amenorrhea 25969123 N91. 2 [id number] Najohn Chakraborty [facility] [address],[place] [address] 10/21/2020 16:45:14 10/21/2020 17:56:38 Gestational diabetes mellitus class A1 16528641 O24.410 Pt here for diet teaching. Went over ideal ranges for FBS and pp BS. Went over carb counting and carb ranges for each meal/snack . Gave ideas for foods to eat for meals/snac ks. Discussed drink options and to avoid soda and juice. Told pt she can go online to ADA for meal options or to look up low carb meal recipes online for ideas as well. Pt has been checking sugars for about a month now. Pt has some elevated pp levels. Most fasting levels are normal. Told pt to continue checking BS QID and adjusting diet to follow low carb diet to try to keep BS within normal range. Pt aware if sugars aren't controlled by diet we would discuss starting insulin. Went over NST schedule with pt and growth u/s once she gets further along. Pt checking BS for her and baby's health. Pts questions were answered and pt verbalized understand ing. ALLISON nieto [id number] Imelda Anderson [facility] [address],[place] [address] 11/05/2020 13:42:14 11/05/2020 15:43:28 screening [id number] Z36.82 [id number] Rosalia Duran MD [facility] [address],[place] [address] 11/05/2020 13:45:26 11/08/2020 20:00:47 Routine care 228789765 Z34.91 [id number] Rosalia Duran MD [facility] [address],[place] [address] 12/10/2020 14:08:01 12/10/2020 14:47:35 Chronic hypertension complicating AND/OR reason for care during 76809258 O16.9 Advanced m aternal age 604464443 O09.522 Diabetes m ellitus during , childbirth and the puerperium 122886975 O24.919 Maternal o besity complicating , childbirth and the puerperium, antepartum 8249239997 07 O99.212 [id number] Renata Diaz [facility] [address],[place] [address] 01/07/2021 13:49:12 01/07/2021 15:50:25 screening for malformation 400185947 Z36.3 [id number] Rosalia Duran MD [facility] [address],[place] [address] 01/07/2021 13:52:34 01/07/2021 16:34:51 Advanced maternal age 399651438 O09.522 Blood grou p AB Rh(D) negative 225451455 Z67.31 Body mass index 40+ - severely obese 055591279 Z68.43 Chronic hy pertension in obstetric context 0104535 O16.9 Gestationa l diabetes mellitus class A1 60745330 O24.410 Pt here for diet teaching. Went over ideal ranges for FBS and pp BS. Went over carb counting and carb ranges for each meal/snack . Gave ideas for foods to eat for meals/snac ks. Discussed drink options and to avoid soda and juice. Told pt she can go online to ADA for meal options or to look up low carb meal recipes online for ideas as well. Pt has been checking sugars for about a month now. Pt has some elevated pp levels. Most fasting levels are normal. Told pt to continue checking BS QID and adjusting diet to follow low carb diet to try to keep BS within normal range. Pt aware if sugars aren't controlled by diet we would discuss starting insulin. Went over NST schedule with pt and growth u/s once she gets further along. Pt checking BS for her and baby's health. Pts questions were answered and pt verbalized understand ing. ALLISON nieto [id number] [facility] [address],[facility] [place] [address] 02/03/2021 10:00:20 02/04/2021 19:04:57 Routine care 591162412 Z34.92 [id number] Imelda [facility] [address],[facility] [place] [address] 02/21/2021 09:53:04 02/21/2021 10:40:34 Gestational diabetes mellitus class A1 95331174 O24.410 O10.013 O99.213 Z3A.28 Pt here for diet teaching. Went over ideal ranges for FBS and pp BS. Went over carb counting and carb ranges for each meal/snack . Gave ideas for foods to eat for meals/snac ks. Discussed drink options and to avoid soda and juice. Told pt she can go online to ADA for meal options or to look up low carb meal recipes online for ideas as well. Pt has been checking sugars for about a month now. Pt has some elevated pp levels. Most fasting levels are normal. Told pt to continue checking BS QID and adjusting diet to follow low carb diet to try to keep BS within normal range. Pt aware if sugars aren't controlled by diet we would discuss starting insulin. Went over NST schedule with pt and growth u/s once she gets further along. Pt checking BS for her and baby's health. Pts questions were answered and pt verbalized understand ing. ALLISON nieto [id number] [facility] [address],[place] [address] 02/21/2021 09:54:10 02/21/2021 14:12:31 Routine care 491041881 Z34.92 [id number] [facility] [address],[place] [address] 03/11/2021 11:23:04 03/14/2021 11:39:40 Routine care 476080385 Z34.92 Gestationa l diabetes mellitus complicating 8764412513 9106 O24.419 [id number] Renata Diaz [facility] [address],[place] [address] 03/18/2021 13:35:08 03/18/2021 14:29:38 Gestational diabetes mellitus class A1 82725612 O24.410 O10.013 O99.213 Z3A.31 Pt here for diet teaching. Went over ideal ranges for FBS and pp BS. Went over carb counting and carb ranges for each meal/snack . Gave ideas for foods to eat for meals/snac ks. Discussed drink options and to avoid soda and juice. Told pt she can go online to ADA for meal options or to look up low carb meal recipes online for ideas as well. Pt has been checking sugars for about a month now. Pt has some elevated pp levels. Most fasting levels are normal. Told pt to continue checking BS QID and adjusting diet to follow low carb diet to try to keep BS within normal range. Pt aware if sugars aren't controlled by diet we would discuss starting insulin. Went over NST schedule with pt and growth u/s once she gets further along. Pt checking BS for her and baby's health. Pts questions were answered and pt verbalized understand ing. ALLISON nieto [id number] Alireza Allen [facility] [address],[place] [address] 03/25/2021 13:27:29 03/25/2021 15:03:56 Chronic hypertension in obstetric context 2240892 O16.9 [id number] Renata Diaz [facility] [address],[place] [address] 03/25/2021 13:30:07 03/25/2021 15:03:50 Maternal obesity complicating , childbirth and the puerperium, antepartum 3529161246 07 O99.212 O24.410 O10.013 Z3A.32 [id number] Rosalia Duran MD [facility] [address],[place] [address] 03/25/2021 13:31:28 03/28/2021 11:12:05 Advanced maternal age 903890041 O09.522 Body mass index 40+ - severely obese 539903818 Z68.43 Chronic hy pertension in obstetric context 8697573 O16.9 Gestationa l diabetes mellitus class A1 97442757 O24.410 O10.013 O99.213 Z3A.31 Pt here for diet teaching. Went over ideal ranges for FBS and pp BS. Went over carb counting and carb ranges for each meal/snack . Gave ideas for foods to eat for meals/snac ks. Discussed drink options and to avoid soda and juice. Told pt she can go online to ADA for meal options or to look up low carb meal recipes online for ideas as well. Pt has been checking sugars for about a month now. Pt has some elevated pp levels. Most fasting levels are normal. Told pt to continue checking BS QID and adjusting diet to follow low carb diet to try to keep BS within normal range. Pt aware if sugars aren't controlled by diet we would discuss starting insulin. Went over NST schedule with pt and growth u/s once she gets further along. Pt checking BS for her and baby's health. Pts questions were answered and pt verbalized understand ing. ALLISON nieto [id number] Christa Coats [facility] [address],[place] [address] 04/01/2021 13:36:29 04/01/2021 14:29:13 Gestational diabetes mellitus class A1 37109661 O24.410 O10.013 O99.213 Z3A.31 [id number] Renata Diaz [facility] [address] [address] 04/01/2021 13:37:48 04/01/2021 15:00:56 Maternal obesity complicating , childbirth and the puerperium, antepartum 3987762490 07 O99.212 O24.410 O10.013 Z3A.33 [id number] Rosalia Duran MD [facility] [address],[place] [address] 04/01/2021 13:38:31 04/01/2021 15:31:52 Advanced maternal age 533846447 O09.522 Chronic hy pertension in obstetric context 5946587 O16.9 Gestationa l diabetes mellitus class A1 28704481 O24.410 O10.013 O99.213 Z3A.31 [id number] Fausto Francis MD [facility] [address],[place] [address] 04/08/2021 13:43:39 04/08/2021 14:26:55 [id number] Renata Diaz [facility] [address],[place] [address] 04/08/2021 13:45:33 04/08/2021 15:11:59 Maternal obesity complicating , childbirth and the puerperium, antepartum 8537952246 07 O99.213 Z3A.34 [id number] [facility] [address],[place] [address] 04/08/2021 13:46:16 04/08/2021 15:50:21 Routine care 612919957 Z34.83 [id number] Christa Coats [facility] [address],[place] [address] 04/08/2021 14:30:02 04/08/2021 14:43:39 Gestational diabetes mellitus class A1 95116420 O24.410 [id number] Sandra Vasquez [facility] [address],[place] [address] 04/15/2021 13:29:40 04/15/2021 15:13:09 Gestational diabetes mellitus class A1 46153540 O24.410 [id number] Rosalia Duran MD [facility] [address],[place] [address] 04/15/2021 13:30:30 04/15/2021 16:27:19 Chronic hypertension in obstetric context 5319006 O16.9 Gestationa l diabetes mellitus class A1 83871501 O24.410 [id number] [facility] [address],[place] [address] 04/15/2021 14:33:58 04/15/2021 15:20:31 Maternal obesity complicating , childbirth and the puerperium, antepartum 4472886871 07 O99.213 O24.410 O10.013 Z3A.35 [id number] [facility] [address],[place] [address] 04/22/2021 13:15:05 04/22/2021 14:21:11 Gestational diabetes mellitus class A1 21228169 O24.410 O10.013 O99.213 Z3A.36 [id number] Christa Doran [facility] [address],[place] [address] 04/22/2021 13:16:06 04/22/2021 15:20:58 Gestational diabetes mellitus class A1 04777235 O24.410 O10.013 O99.213 Z3A.36 [id number] Rosalia Duran MD [facility] [address],[place] [address] 04/22/2021 13:16:29 04/22/2021 15:45:36 Chronic hypertension in obstetric context 6267456 O16.9 Body mass index 40+ - severely obese 119327234 Z68.43 Advanced m aternal age 479995179 O09.522 [id number] [facility] [address],[place] [address] 04/29/2021 13:48:50 04/29/2021 15:19:07 Routine care 007506653 Z34.83 [id number] Renata Diaz [facility] [address],[place] [address] 04/29/2021 13:45:39 04/29/2021 15:06:29 Maternal obesity complicating , childbirth and the puerperium, antepartum 1101814816 07 O99.213 O16.9 Z3A.37 [id number] Christa Coats [facility] [address],[place] [address] 04/29/2021 13:47:37 04/29/2021 14:30:13 Gestational diabetes mellitus class A1 65193602 O24.410 [id number] [facility] [address],[place] [address] 06/03/2021 11:33:26 06/03/2021 12:21:48 care 948173193 Z39.2 [id number] [facility] [address],[place] [address] 12/23/2021 13:43:37 12/23/2021 14:30:43 Gynecologic examination 25715333 Z01.419 Z11.51 [id number] Holli Meraz [facility] [address],[place] [address] 12/01/2022 15:55:19 12/02/2022 16:25:02 [id number] Ann Obregon [facility] [address],[place] [address] 12/01/2022 15:55:03 12/04/2022 15:01:31 Missed miscarriage 80894180 O02.1 Z3A.08 [id number] Holli Meraz [facility] [address],[place] [address] 12/01/2022 16:40:34 12/05/2022 18:11:43 Missed miscarriage 21807482 O02.1 follow up sunday to discuss d&clabs today [id number] Imelda Anderson [facility] [address],[place] [address] 12/04/2022 13:20:54 12/04/2022 13:47:05 Missed miscarriage 49686613 O02.1 Z3A.08 Z3A.01 [id number] Fausto Francis MD [facility] [address],[place] [address] 12/04/2022 13:21:25 12/04/2022 16:13:28 Missed miscarriage 65347547 O02.1 Z3A.08 Z3A.01 This patient is a 37 female who presents for [missed discussed the etiology, frequency, natural history, and treatment of this condition. Spent more than 40 minutes talking about the above, as well as, her history, the particular findings of her case, and detail of her the treatment options. We discussed the risk benefits of each option. She understand s the risk include infection and hemorrhage . She understand s a D&C also holds the risk of injury. She understand s that waiting can result in a septic that is even more difficult to treat. We talked about signs and symptoms of infection. \ we agreed to proceed with suction D&C. She is completed the informed consent process is ready to proceed. She understand s the risks, benefits, and alternativ es. [id number] Fausto Francis MD [facility] [address],[place] [address] 12/13/2022 16:37:07 12/13/2022 17:26:12 Missed miscarriage 07450064 O02.1 Z3A.08 Z3A.01 this patient presents for follow-up missed miscarriag e. She is 1 week from a suction D&C. She is recovering normally. Her bleeding is minimal. She has no foul-smell ing vaginal discharge. She denies any nausea, vomiting, fever, chills. We discussed contracept ion. We discussed future . She will follow up for a repeat test. [id number] Fausto Francis MD [facility] [address] [place] [address] 01/11/2023 10:14:29 01/11/2023 10:16:59 [id number] Imedla Anderson [facility] [address] [place] [address] 10/16/2023 13:10:02 10/16/2023 14:09:05 Missed miscarriage 18219968 O02.1 Z3A.01 [id number] [facility] [address] [address] 10/17/2023 11:05:49 10/17/2023 12:04:40 Miscarriage 12757172 O03.9 continue to follow HCG until zerocall if any concernspl an labs todayozemp ic with PCPf/u here wwe Health Concerns Section Related Observation LastModified by Organization Detai ls LastModified Time None Recorded Concern Status LastModified by Organization Details LastModified Time None Recorded Advance Directives Directive N: Payers Encounter Date Sequence Insurance Name Policy Number Policy Harding Covered Member ID Harding Member ID Guarantor Name 12/04/2022 2 [place] [id number] Timur Fab Narvaez [id number] 14 Lindsay Narvaez 12/07/2022 2 [place] [id number] Timur Fab Narvaez [id number] 14 Lindsay Narvaez 12/13/2022 2 [place] [id number] Timur Fab Narvaez [id number] Lindsay Narvaez 10/16/2023 2 [place] [id number] Timur Narvaez [id number] Lindsay Narvaez 10/16/2023 1 UMR [id number] Lindsay Narvaez [id number] Lindsay Narvaez 10/17/2023 2 [place] [id number] Timur Smith Narvaez [id number] 14 Lindsay Narvaez 10/17/2023 1 UMR [id number] Lindsay Narvaez [id number] Lindsay Narvaez Notes Date Note Type Note Provider Name and Address Organization Details Recorded Time 12/04/2022 text/html This patient is a 37 female who presents for [missed discussed the etiology, frequency, natural history, and treatment of this condition. Spent more than 40 minutes talking about the above, as well as, her history, the particular findings of her case, and detail of her the treatment options. We discussed the risk benefits of each option. She understands the risk include infection and hemorrhage. She understands a D&C also holds the risk of injury. She understands that waiting can result in a septic that is even more difficult to treat. We talked about signs and symptoms of infection. \ we agreed to proceed with suction D&C. She is completed the informed consent process is ready to proceed. She understands the risks, benefits, and alternatives. Fausto Francis MD [address], [place], [address], , [facility] 12/07/2022 13:32:23 12/13/2022 text/html this patient presents for follow-up missed miscarriage. She is 1 week from a suction D&C. She is recovering normally. Her bleeding is minimal. She has no foul-smelling vaginal discharge. She denies any nausea, vomiting, fever, chills. We discussed contraception. We discussed future . She will follow up for a repeat test. Fausto Francis MD [address], [place], [address], , P[facility] 12/13/2022 17:22:11 10/17/2023 text/html follow up, diagnosed with miscarriage yesterday after US and blood work, is currently bleeding some cramping, had rhogam at [email or web address] to lose weight, discussed, miscarriage risks and she did not cause. but will have pcp start her on ozempic for weight loss, check labs [id number] Holli Meraz CNM [address], [place], [address], , P[facility] 10/17/2023 11:56:07 OBGyn Episode Ob Episode Information Episode Created Date Number of Fetuses Patient Bloodtype Patient rh Status Prepregnancy Weight lbs Domestic Partner Domestic Partner Phone Father Name Territory Account Representative Status 11/06/19 21 1 AB Negative 296 CLOSED Fetus Data First Name Last Name Admitted to NICU Weight (g) Sex Living Outcome Pediatric Complications Fetus ID Race Codes Race Delivery Type Delayn ie 3486.98 85 F true Full Term terminal meconium, gastric aspirate 4 ccs, delee suction catheter 80-100 mm hg [id number] Problems Problem Notes declined CF/SMADeclined lead Problem Name Start Date End Date Resolution Snomed Code Not e Prediabetes 904180862 elevated ha1c - pt checking sugars QID Blood group AB Rh(D) negative 271736301 rhogam 10/01, @ at 28 wks Body mass index 40+ - severely obese 274865728 BMI 51, discu ssed testing Mixed anxiety and depressive disorder 597067264 12/27- s tarted on Zoloft 50mg. Increase in anxiety - f/u on mood 01/07 Advanced maternal age 802395682 Chronic hypertension in obstetric context [id number] new diagno sis, testing at 32 weeks, will take ASA Ultrasound scan abnormal [id number] LV EIF- repeat US 28w Gestational diabetes mellitus class A1 [id number] checking s ugars QID Iam Calculation Initial Iam Date Initial Exam Date Initial Exam Provider Initial Ultrasound Date Last Menstrual Period Date Ultra Sound Weeks Gestation 05/15/2021 11/05/2020 10/01/2020 08/08/2020 7 Eighteen To Twenty Week Iam Update Ultra Sound Date Fundal Height At Umbil Quickening Date Ultra Sound Latest Weeks Gestation Final Iam Confirmed By Final Iam Confirmed Date Final Iam Date Ultra Sound Latest Days Gestation 0 [email or web address] 11/05/2020 05/16/19 22 0 Pre-matthew Flowsheet Flowsheet Date 11/05/2020 Franco Score Blood Edema Fundus Height Fundus Units Glucose Ketones Leukocytes Nitrite Labor Signs Protein Cervic Dilation Cervic Effacement Cervic Station neg trace trace Type Weight in lbs Pre/Post Dialysis Refused Weight 294.279834388623 BP Diastolic BP Location Tested BP Systolic BP Type 82 145 Fetus Heart Rate Present A 135 Fetus Movement A No Comments Lindsay is a 35yo at 12.5 presenting for care. 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 Fastings all in the 80s, some postprandials 140s-150s. also complicated by BMI of 51, we discussed risks of obesity in and testing. She also has had a couple elevated BPs, enough to diagnose mild cHTN. Will start ASA 162mg. Also has a history of anxiety and depression, no meds for years, denies Sx. PNL and NIPT today. US today normal NT, small KAILA. Flowsheet Date 12/10/2020 Franco Score Blood Edema Fundus Height Fundus Units Glucose Ketones Leukocytes Nitrite Labor Signs Protein Cervic Dilation Cervic Effacement Cervic Station neg none trace Type Weight in lbs Pre/Post Dialysis Refused Weight 301.023220991986 BP Diastolic BP Location Tested BP Systolic BP Type 84 143 80 132 Fetus Heart Rate Present A 145 Fetus Movement A Yes Comments Doing well except for insomn ia. Baseline pIH labs today. Sugars reviewed- one fasting elevated, occasional pp elevated, usually she knows what she ate. Declines AFP. Anatomy US next. Mood good. Flowsheet Date 01/07/2021 Franco Score Blood Edema Fundus Height Fundus Units Glucose Ketones Leukocytes Nitrite Labor Signs Protein Cervic Dilation Cervic Effacement Cervic Station Type Weight in lbs Pre/Post Dialysis Refused BP Diastolic BP Location Tested BP Systolic BP Type Fetus Heart Rate Present Fetus Movement Comments Flowsheet Date 01/07/2021 Franco Score Blood Edema Fundus Height Fundus Units Glucose Ketones Leukocytes Nitrite Labor Signs Protein Cervic Dilation Cervic Effacement Cervic Station trace Type Weight in lbs Pre/Post Dialysis Refused Weight 306.869571448363 BP Diastolic BP Location Tested BP Systolic BP Type 82 130 Fetus Heart Rate Present A 145 Fetus Movement A Yes Comments Doing well overall. BS fasti ngs all 70s-80s, occasional pp elevated with dietary indiscretion. BP stable. Anatomy US today complete and wnl except EIF present. Discussed. Plan next US at 28w growth. 2x weekly testing to start at 32weeks due to GDM, BMI, and cHTN. Taking 25mg zoloft and helping anxiety already but still not sleeping at night, may use benadryl occasionally. Discuss Tdap next visit. Flowsheet Date 02/03/2021 Franco Score Blood Edema Fundus Height Fundus Units Glucose Ketones Leukocytes Nitrite Labor Signs Protein Cervic Dilation Cervic Effacement Cervic Station trace none trace Type Weight in lbs Pre/Post Dialysis Refused Weight 310.613108139215 BP Diastolic BP Location Tested BP Systolic BP Type Fetus Heart Rate Present A 150 Fetus Movement A Yes Comments Doing well. Does have some e levated 1 hour pp. Also has not been checking regularly. She know the elevated 1 hours are diet related. Has not been as strict d/t the holidays. Discussed importance of bs control. Will have ob staff call patient in 1 week to review her numbers. Having a girl Delaynie . Flowsheet Date 02/21/2021 Franco Score Blood Edema Fundus Height Fundus Units Glucose Ketones Leukocytes Nitrite Labor Signs Protein Cervic Dilation Cervic Effacement Cervic Station Type Weight in lbs Pre/Post Dialysis Refused BP Diastolic BP Location Tested BP Systolic BP Type Fetus Heart Rate Present Fetus Movement Comments Flowsheet Date 02/21/2021 Franco Score Blood Edema Fundus Height Fundus Units Glucose Ketones Leukocytes Nitrite Labor Signs Protein Cervic Dilation Cervic Effacement Cervic Station neg none 32 trace trace Type Weight in lbs Pre/Post Dialysis Refused Weight 311.478265158117 BP Diastolic BP Location Tested BP Systolic BP Type 84 R arm 130 sitting Fetus Heart Rate Present A 155 Fetus Movement A Yes Comments Doing well. Blood sugars imp roving with stricter diet control. Has had covid and flu vaccines. TDAP tomorrow. Growth u/s today was normal. She will call us 1 week from today to report blood sugars again. Flowsheet Date 03/11/2021 Franco Score Blood Edema Fundus Height Fundus Units Glucose Ketones Leukocytes Nitrite Labor Signs Protein Cervic Dilation Cervic Effacement Cervic Station none 34 none trace Type Weight in lbs Pre/Post Dialysis Refused Weight 312.088585681728 BP Diastolic BP Location Tested BP Systolic BP Type 72 130 Fetus Heart Rate Present A 141 Fetus Movement A Yes Comments Doing well. Does have some e levated bs. She knows they are diet related. Discussed importance of diet control. Reviewed with Dr Francis and he does not feel that insulin is indicated at this time. Flowsheet Date 03/18/2021 Franco Score Blood Edema Fundus Height Fundus Units Glucose Ketones Leukocytes Nitrite Labor Signs Protein Cervic Dilation Cervic Effacement Cervic Station Type Weight in lbs Pre/Post Dialysis Refused BP Diastolic BP Location Tested BP Systolic BP Type Fetus Heart Rate Present Fetus Movement Comments Flowsheet Date 03/25/2021 Franco Score Blood Edema Fundus Height Fundus Units Glucose Ketones Leukocytes Nitrite Labor Signs Protein Cervic Dilation Cervic Effacement Cervic Station Type Weight in lbs Pre/Post Dialysis Refused BP Diastolic BP Location Tested BP Systolic BP Type Fetus Heart Rate Present Fetus Movement Comments Flowsheet Date 03/25/2021 Franco Score Blood Edema Fundus Height Fundus Units Glucose Ketones Leukocytes Nitrite Labor Signs Protein Cervic Dilation Cervic Effacement Cervic Station Type Weight in lbs Pre/Post Dialysis Refused BP Diastolic BP Location Tested BP Systolic BP Type Fetus Heart Rate Present Fetus Movement Comments Flowsheet Date 03/25/2021 Franco Score Blood Edema Fundus Height Fundus Units Glucose Ketones Leukocytes Nitrite Labor Signs Protein Cervic Dilation Cervic Effacement Cervic Station neg trace 36 none trace Type Weight in lbs Pre/Post Dialysis Refused Weight 316.311714674945 BP Diastolic BP Location Tested BP Systolic BP Type 88 134 Fetus Heart Rate Present A 145 Fetus Movement A Yes Comments Doing well. Checking sugars, fastings 80-104, most normal. Only a few elevated Pp. Will continue to monitor, may need insulin. NST reactive, BPP 8/8. Flowsheet Date 04/01/2021 Franco Score Blood Edema Fundus Height Fundus Units Glucose Ketones Leukocytes Nitrite Labor Signs Protein Cervic Dilation Cervic Effacement Cervic Station Type Weight in lbs Pre/Post Dialysis Refused BP Diastolic BP Location Tested BP Systolic BP Type Fetus Heart Rate Present Fetus Movement Comments Flowsheet Date 04/01/2021 Franco Score Blood Edema Fundus Height Fundus Units Glucose Ketones Leukocytes Nitrite Labor Signs Protein Cervic Dilation Cervic Effacement Cervic Station Type Weight in lbs Pre/Post Dialysis Refused BP Diastolic BP Location Tested BP Systolic BP Type Fetus Heart Rate Present Fetus Movement Comments Flowsheet Date 04/01/2021 Franco Score Blood Edema Fundus Height Fundus Units Glucose Ketones Leukocytes Nitrite Labor Signs Protein Cervic Dilation Cervic Effacement Cervic Station neg trace 37 none trace Type Weight in lbs Pre/Post Dialysis Refused Weight 316.789492905471 BP Diastolic BP Location Tested BP Systolic BP Type 80 130 Fetus Heart Rate Present A 145 Fetus Movement A Yes Comments Doing well. BS- fastings 82- 95, a couple pp elevated. No insulin yet. Tdap done. BPP 11/14. Discussed 38w delivery. Flowsheet Date 04/08/2021 Franco Score Blood Edema Fundus Height Fundus Units Glucose Ketones Leukocytes Nitrite Labor Signs Protein Cervic Dilation Cervic Effacement Cervic Station Type Weight in lbs Pre/Post Dialysis Refused BP Diastolic BP Location Tested BP Systolic BP Type Fetus Heart Rate Present Fetus Movement Comments Flowsheet Date 04/08/2021 Franco Score Blood Edema Fundus Height Fundus Units Glucose Ketones Leukocytes Nitrite Labor Signs Protein Cervic Dilation Cervic Effacement Cervic Station Type Weight in lbs Pre/Post Dialysis Refused BP Diastolic BP Location Tested BP Systolic BP Type Fetus Heart Rate Present Fetus Movement Comments Flowsheet Date 04/08/2021 Franco Score Blood Edema Fundus Height Fundus Units Glucose Ketones Leukocytes Nitrite Labor Signs Protein Cervic Dilation Cervic Effacement Cervic Station Type Weight in lbs Pre/Post Dialysis Refused BP Diastolic BP Location Tested BP Systolic BP Type Fetus Heart Rate Present Fetus Movement Comments Flowsheet Date 04/08/2021 Franco Score Blood Edema Fundus Height Fundus Units Glucose Ketones Leukocytes Nitrite Labor Signs Protein Cervic Dilation Cervic Effacement Cervic Station neg trace trace Type Weight in lbs Pre/Post Dialysis Refused Weight 321.862491973069 BP Diastolic BP Location Tested BP Systolic BP Type 90 150 80 140 80 128 Fetus Heart Rate Present Fetus Movement A Yes Comments PATIENT IS HAVING PRESSURE, SWELLING, DISCHARGE, AND NAUSEA. EFW 74%, AC 87%, fastings wnl some meals elevated pt aware and trying to make changes, pih labs asymptomatic f/u one week Flowsheet Date 04/15/2021 Franco Score Blood Edema Fundus Height Fundus Units Glucose Ketones Leukocytes Nitrite Labor Signs Protein Cervic Dilation Cervic Effacement Cervic Station Type Weight in lbs Pre/Post Dialysis Refused BP Diastolic BP Location Tested BP Systolic BP Type Fetus Heart Rate Present Fetus Movement Comments Flowsheet Date 04/15/2021 Franco Score Blood Edema Fundus Height Fundus Units Glucose Ketones Leukocytes Nitrite Labor Signs Protein Cervic Dilation Cervic Effacement Cervic Station Type Weight in lbs Pre/Post Dialysis Refused BP Diastolic BP Location Tested BP Systolic BP Type Fetus Heart Rate Present Fetus Movement Comments Flowsheet Date 04/15/2021 Franco Score Blood Edema Fundus Height Fundus Units Glucose Ketones Leukocytes Nitrite Labor Signs Protein Cervic Dilation Cervic Effacement Cervic Station neg none 39 none trace 1cm 50% -3 Type Weight in lbs Pre/Post Dialysis Refused Weight 322.058821987743 BP Diastolic BP Location Tested BP Systolic BP Type 82 136 Fetus Heart Rate Present A 135 Fetus Movement A Yes Comments Doing fine. GBS done. Cervix 1.5/50/soft. Will schedule IOL for 38w. BS good. Flowsheet Date 04/22/2021 Franco Score Blood Edema Fundus Height Fundus Units Glucose Ketones Leukocytes Nitrite Labor Signs Protein Cervic Dilation Cervic Effacement Cervic Station Type Weight in lbs Pre/Post Dialysis Refused BP Diastolic BP Location Tested BP Systolic BP Type Fetus Heart Rate Present Fetus Movement Comments Flowsheet Date 04/22/2021 Franco Score Blood Edema Fundus Height Fundus Units Glucose Ketones Leukocytes Nitrite Labor Signs Protein Cervic Dilation Cervic Effacement Cervic Station Type Weight in lbs Pre/Post Dialysis Refused BP Diastolic BP Location Tested BP Systolic BP Type Fetus Heart Rate Present Fetus Movement Comments Flowsheet Date 04/22/2021 Franco Score Blood Edema Fundus Height Fundus Units Glucose Ketones Leukocytes Nitrite Labor Signs Protein Cervic Dilation Cervic Effacement Cervic Station neg trace 40 none neg 1cm 50% -3 Type Weight in lbs Pre/Post Dialysis Refused Weight 324.786441821534 BP Diastolic BP Location Tested BP Systolic BP Type 78 140 Fetus Heart Rate Present A 150 Fetus Movement A Yes Comments Doing ok. IOL scheduled in 1 0 days. Last weekend she didn't check any sugars, and has not been following diet, several elevated PPs. We discussed possible need for insulin if she can't buckle down and control her diet, as this is a very important tiime for them to be controlled, just before delivery. She will refocus. BPP 810 today. GBS neg. Flowsheet Date 04/29/2021 Franco Score Blood Edema Fundus Height Fundus Units Glucose Ketones Leukocytes Nitrite Labor Signs Protein Cervic Dilation Cervic Effacement Cervic Station Type Weight in lbs Pre/Post Dialysis Refused BP Diastolic BP Location Tested BP Systolic BP Type Fetus Heart Rate Present Fetus Movement Comments Flowsheet Date 04/29/2021 Franco Score Blood Edema Fundus Height Fundus Units Glucose Ketones Leukocytes Nitrite Labor Signs Protein Cervic Dilation Cervic Effacement Cervic Station Type Weight in lbs Pre/Post Dialysis Refused BP Diastolic BP Location Tested BP Systolic BP Type Fetus Heart Rate Present Fetus Movement Comments Flowsheet Date 04/29/2021 Franco Score Blood Edema Fundus Height Fundus Units Glucose Ketones Leukocytes Nitrite Labor Signs Protein Cervic Dilation Cervic Effacement Cervic Station neg trace neg 1cm 50% -3 Type Weight in lbs Pre/Post Dialysis Refused Weight 323.140649292104 BP Diastolic BP Location Tested BP Systolic BP Type 89 148 Fetus Heart Rate Present Fetus Movement A Yes Comments PATIENT STATES THAT HAVING S OME SWELLING. blood sugars all over the place, not following diet, fastings seem to be staying around mid 90's bpp 10/10, encouraged diabetic diet IOL scheduled for sunday Menstrual History Last Menstrual Date Menses Monthly On Bcp Conception Prior Menses Frequency Hcg Plus Date Menarche Onset Age 0708/08/2020 Delivery Information Delivery Date Delivery Type Labor Anesthesia Weeks Gestation Incision Type Labor Labor Length Hrs Delivered By Post Complications Tubal Sterilization Discharge Date Comments 2 Induce d Regional-Ep idural 38.2 Holli Rodriguez CNAlireza Maternal obesity, GDM, Pre Diabetic, AMA & CHTNProlo nged ROM Discharge Information Feeding Method Contraceptive Method Maternal HG B and HCT Levels Breast Ob Episode Information Episode Created Date Number of Fetuses Patient Bloodtype Patient rh Status Prepregnancy Weight lbs Domestic Partner Domestic Partner Phone Father Name Territory Account Representative Status 10/07/19 21 1 CLOSED Fetus Data First Name Last Name Admitted to NICU Weight (g) Sex Living Outcome Pediatric Complications Fetus ID Race Codes Race Delivery Type 2976.47 [id number] F Full Term [id number] Vaginal Delivery Iam Calculation Initial Iam Date Initial Exam Date Initial Exam Provider Initial Ultrasound Date Last Menstrual Period Date Ultra Sound Weeks Gestation 0 Eighteen To Twenty Week Iam Update Ultra Sound Date Fundal Height At Umbil Quickening Date Ultra Sound Latest Weeks Gestation Final Iam Confirmed By Final Iam Confirmed Date Final Iam Date Ultra Sound Latest Days Gestation 0 0 Menstrual History Last Menstrual Date Menses Monthly On Bcp Conception Prior Menses Frequency Hcg Plus Date Menarche Onset Age Delivery Information Delivery Date Delivery Type Labor Anesthesia Weeks Gestation Incision Type Labor Labor Length Hrs Delivered By Post Complications Tubal Sterilization Discharge Date Comments 8 40 Discharge Information Feeding Method Contraceptive Method Maternal HG B and HCT Levels Ob Episode Information Episode Created Date Number of Fetuses Patient Bloodtype Patient rh Status Prepregnancy Weight lbs Domestic Partner Domestic Partner Phone Father Name Territory Account Representative Status 12/05/19 23 1 CLOSED Fetus Data First Name Last Name Admitted to NICU Weight (g) Sex Living Outcome Pediatric Complications Fetus ID Race Codes Race Delivery Type , [place] [id number] Iam Calculation Initial Iam Date Initial Exam Date Initial Exam Provider Initial Ultrasound Date Last Menstrual Period Date Ultra Sound Weeks Gestation 0 Eighteen To Twenty Week Iam Update Ultra Sound Date Fundal Height At Umbil Quickening Date Ultra Sound Latest Weeks Gestation Final Iam Confirmed By Final Iam Confirmed Date Final Iam Date Ultra Sound Latest Days Gestation 0 0 Menstrual History Last Menstrual Date Menses Monthly On Bcp Conception Prior Menses Frequency Hcg Plus Date Menarche Onset Age Delivery Information Delivery Date Delivery Type Labor Anesthesia Weeks Gestation Incision Type Labor Labor Length Hrs Delivered By Post Complications Tubal Sterilization Discharge Date Comments 3 Discharge Information Feeding Method Contraceptive Method Maternal HG B and HCT Levels Ob Episode Information Episode Created Date Number of Fetuses Patient Bloodtype Patient rh Status Prepregnancy Weight lbs Domestic Partner Domestic Partner Phone Father Name Territory Account Representative Status 10/17/19 24 1 CLOSED Fetus Data First Name Last Name Admitted to NICU Weight (g) Sex Living Outcome Pediatric Complications Fetus ID Race Codes Race Delivery Type , [place] [id number] Iam Calculation Initial Iam Date Initial Exam Date Initial Exam Provider Initial Ultrasound Date Last Menstrual Period Date Ultra Sound Weeks Gestation 0 Eighteen To Twenty Week Iam Update Ultra Sound Date Fundal Height At Umbil Quickening Date Ultra Sound Latest Weeks Gestation Final Iam Confirmed By Final Iam Confirmed Date Final Iam Date Ultra Sound Latest Days Gestation 0 0 Menstrual History Last Menstrual Date Menses Monthly On Bcp Conception Prior Menses Frequency Hcg Plus Date Menarche Onset Age Delivery Information Delivery Date Delivery Type Labor Anesthesia Weeks Gestation Incision Type Labor Labor Length Hrs Delivered By Post Complications Tubal Sterilization Discharge Date Comments 4 Discharge Information Feeding Method Contraceptive Method Maternal HG B and HCT Levels
== END 2024-05-19 14:48 | disposition home or self-care (01) ==
LOC: CHSIMG 14:48
PROVIDERS: PCP Family Medicine; Visit Provider Family Medicine
DX: Z12.31 Encounter for screening mammogram for malignant neoplasm of breast (principal)
CPT/HCPCS: 77063; 77067